=== PATIENT | female | born 1965 | race Caucasian/White ===

== ENCOUNTER → 2017-12-27 10:50 | Outpatient (CLI) | payer BC, SELFPAY | PROVIDERS: Family Provider Family Medicine; PCP Family Medicine; Visit Provider Family Medicine | DX: R19.7 Diarrhea, unspecified (principal) | CPT/HCPCS: 87493; 87506 ==

== ENCOUNTER 2020-05-10 08:13 | Observation (INO) | payer OTHER, SELFPAY ==
[2020-05-10 08:14] VITALS: BP 145/98; PULSE 111; RESP 28; TEMP 37; O2SAT 100; BMI 23.5
--- NOTE | 2020-05-10 08:23 | NURSING ---
NO OLD EKGS
--- NOTE | 2020-05-10 08:28 | EKG12_ITS ---
Test Reason : CP Blood Pressure : / mmHG Vent. Rate : 081 BPM Atrial Rate : 081 BPM P-R Int : 120 ms QRS Dur : 078 ms QT Int : 390 ms P-R-T Axes : 071 013 -27 degrees QTc Int : 453 ms Normal sinus rhythm with sinus arrhythmia Nonspecific ST and T wave abnormality Abnormal ECG Confirmed by IVANNA LORENZO ([id number]), editor dictionary YOON RODRIGUEZ ([id number]) on 05/13/2020 10:32:21 AM Referred By: SAMUEL Confirmed By:IVANNA LORENZO
--- NOTE | 2020-05-10 08:28 | RAD_ITS ---
STUDY: X-RAY CHEST REASON FOR EXAM: Female, 54 years old. Chest pain started this morning. TECHNIQUE: Single AP portable view of the chest. COMPARISON: None. FINDINGS: EKG electrodes are seen. The lungs are clear and expanded. There is no demonstrated pleural abnormality. Normal size heart. Normal mediastinum and mary. Normal visualized pulmonary arteries. Normal visualized aortic arch and descending thoracic aorta. Normal visualized thoracic spine. Normal visualized ribs, clavicles, and shoulders. There is no demonstrated abnormality of the visualized soft tissue structures of the upper abdomen. RAD/Chest 1 View (Portable) IMPRESSION: Normal x-ray examination of the chest. Electronically Signed: Bhupinder Oro, at 9:20 EDT , Service support ,
--- NOTE | 2020-05-10 08:29 | ED.VISSUMM ---
- ER Visit Summary Date of Service: 05/10/20 Chief Complaint: [Chest pain] History of Present Illness: The patient is a 54 F [presents to the emergency department with chest discomfort since approximately 1:30 AM. Patient states that it woke her up. Patient has been unable to sleep since that time. Patient states that around 3:30 AM she started having relief of her discomfort but still rates the discomfort about a 2 out of 10. She describes a pressure or tightness in her chest with radiation into the right side of her jaw and shoulder. Patient states she is been having headache for several days. She denies any fever or cough. She denies any exposures to COVID-19. Patient denies recent travel or surgery. No family history of heart disease. She herself is never had any cardiac issues. Patient states that when she was having severe discomfort she felt panicky and very tense.] Physical Examination: [HEENT-PERRLA, EOMI. Cranial nerves II through XII grossly intact. TMs clear. Mucous membranes moist. No adenopathy. Cardiovascular-regular rate and rhythm without murmur or ectopy Lungs-clear to auscultation, chest wall stable without crepitus or subcu emphysema Abdomen-normoactive bowel sounds, soft, nontender, no rebound or rigidity, no peritoneal signs. Extremities-intact ?4, normal range of motion, normal pulses, atraumatic] Test Results: [EKG obtained on arrival shows sinus rhythm with a ventricular rate of [address] changes noted with subtle ST depression noted inferiorly as well as anterior. No old EKGs available for comparison.] CBC with it was unremarkable. Chemistries unremarkable. Troponin less than 0.015. D-dimer normal. Chest x-ray unremarkable. Emergency Department Course and Treatment: [ Established. Patient was given sublingual nitro which seemed to help with her discomfort. Patient was given aspirin. She was placed on a night monitor. Patient was given Toradol 15 mg IV for headache.] Treatment Plan: [Admit. Patient has a heart score of 5.] Disposition: [Admit] Impression: [Chest pain-rule out acute coronary syndrome] This note was generated with [employer] software. It may contain incorrect words, spelling, and punctuation that were not noted in review of the chart prior to signing ED Disposition - Plan for ED Patient: Referrals: Eh Larose MD [Primary Care Provider] -
[2020-05-10 08:47] LABS: Absolute Lymphocyte Count 2.29 X10^3/uL (0.83-4.51); Absolute Neutrophil Count 6.6 X10^3/uL (2.0-7.7); Basophil# 0.04 X10^3/uL; Basophil% 0.4 % (0-1); Eosinophil# 0.13 X10^3/uL; Eosinophils% 1.3 % (0-5); Hemoglobin 15.6 g/dL (12.0-15.0); Lymphocyte # 2.29 X10^3/ul (4.0); Lymphocyte % 22.8 % (19-41); Mean Corp Hgb Conc 33.2 g/dL (32-36); Mean Corpuscular Hgb 30.1 pg (27.0-32.0); Mean Corpuscular Volume 90.6 fL (81-99); Mean Platelet Vol. 10.8 fl (6.2-12.0); Monocyte# 0.98 X10^3/uL; Monocyte% 9.7 % (0-10); NRBC Flagged by Analyzer 0 % (0-5); Neutrophil # 6.58 X10^3/uL (2.7-7.7); Neutrophil % 65.4 % (47-70); Platelet Count 258 K/mm3 (150-450); RBC Distribution Width CV 12.8 % (11.6-14.6); RBC Distribution Width SD 42.1 fl (35.1-43.9); Red Blood Count 5.19 M/mm3 (4.2-5.4); White Blood Count 10.1 K/mm3 (4.4-11.0)
[2020-05-10] MEDS: 0.9% Normal Saline 1,000 ML 150 ML IV ×2 (08:48→10:23)
[2020-05-10] MEDS: Aspirin 81 MG TAB.CHEW 324 MG PO (08:48)
[2020-05-10 08:49] VITALS: BP 101/79; PULSE 58
[2020-05-10] MEDS: Nitroglycerin SL (ED/IMG/CATH) 0.4 MG TABLET SUBLINGUAL (08:49)
[2020-05-10 09:00] LABS: Anion Gap 13 (5-15); BUN 13 mg/dL (7-18); BUN/Creat Ratio 13.6 RATIO (10-20); Calcium,Total 9.5 mg/dL (8.5-10.1); Chloride 104 mmol/L (98-107); Creatinine, Serum 0.95 mg/dL (0.55-1.02); EST Glomerular Filtration Rate 64 mL/min (>60); Est Glom Filt Rate - Afr Amer 78 mL/min (>60); Glucose 101 mg/dL (74-106); Potassium 3.6 mmol/L (3.5-5.1); Sodium Level 140 mmol/L (136-145)
[2020-05-10 09:01] LABS: D-Dimer Quantitative (DVT/PE) 0.28 FEU/ug/m (0.27-0.49)
[2020-05-10] MEDS: Ondansetron 4 MG/2 ML Vial IV (09:04)
--- NOTE | 2020-05-10 09:10 | NURSING ---
DR GILBERT PERDUE
--- NOTE | 2020-05-10 09:13 | NURSING ---
PCU OBS GILBERT SOLIS
[2020-05-10] MEDS: Ketorolac 15 MG/ML Vial IV (09:31)
[2020-05-10 09:35] VITALS: BP 95/83; PULSE 61; RESP 18; TEMP 36.6; O2SAT 99
[2020-05-10 10:02] VITALS: BP 94/44; PULSE 56; RESP 14; TEMP 36.4; O2SAT 99
[2020-05-10 10:03] VITALS: BMI 24.2
--- NOTE | 2020-05-10 10:15 | EKG12_ITS ---
Test Reason : CP Blood Pressure : / mmHG Vent. Rate : 058 BPM Atrial Rate : 058 BPM P-R Int : 124 ms QRS Dur : 084 ms QT Int : 470 ms P-R-T Axes : 056 011 035 degrees QTc Int : 461 ms Sinus bradycardia Nonspecific ST and T wave abnormality Prolonged QT Abnormal ECG When compared with ECG of 10-MAY-2020 08:16, MANUAL COMPARISON REQUIRED, DATA IS UNCONFIRMED Confirmed by IVANNA LORENZO ([id number]), movie editor YOON RODRIGUEZ ([id number]) on 05/13/2020 10:35:31 AM Referred By: HAILEE Confirmed By:IVANNA LORENZO
[2020-05-10 10:20] VITALS: BMI 24.2
[2020-05-10 10:33] VITALS: PULSE 69
--- NOTE | 2020-05-10 11:10 | HP.PCM_ITS ---
Problem List (1) Chest pain Status: Acute (2) Anxiety Status: Chronic History of Present Illness Date of Admission: 05/10/20 Chief Complaint: chest pressure The patient is a 54 year old F with pmhx of anx/depression who presented to the ER with c/o chest pain. This began last night just before going to bed. She describes it as a midsternal chest pressure that radiates into the right jaw. It is worse laying flat and better sitting up. She took OTC nsaids with no relief. She woke up at about 0130 and the pain was worse. She went to the cough and slept propped upright with pillows and the pain was mildly improved. She has no exertional chest pain. She has no SOB at rest or with exertion. No cough, fevers, chills, recent illness, or sick contacts. She denies any family hx of cardiac disease. She has no HTN or HLD. She smokes marijuana daily. She denies ever using tobacco. Currently she has no chest pain. [] Past Medical History Past Medical History (Chronic Problems): Chronic Problems Anxiety (Chronic) Allergies erythromycin base Allergy (Verified 05/10/20 09:09) Nausea Home Medications: Ambulatory Orders Medication Instructions Recorded Bupropion HCl [Wellbutrin Xl] 150 mg PO DAILY 05/10/20 Citalopram [Celexa] 20 mg PO DAILY 05/10/20 Trazodone HCl 50 mg PO QHS PRN 05/10/20 Surgical History: - - C section Psychiatric History: Anxiety, Depression Lives: Spouse/ Significant Other Smoking Status: Never smoker Tobacco Use: Non-smoker Alcohol: None Drugs: Marijuana - *Family History Maternal History Items: Renal Disease Paternal History Items: Cancer - colon Review of Systems Constitutional: Denies: Chills, Fever, Weight Change HEENT: Denies: Head Aches, Sinus Congestion, Sinus Drainage Cardiovascular: Reports: Chest Pain, Chest Pressure. Denies: Edema, Heaviness, Light Headedness, Orthopnea, Palpitations, Syncope Respiratory: Denies: Cough, Shortness of Breath, Shortness of breath at rest, Sputum production Gastrointestinal: Denies: Abdominal Pain, Diarrhea, Nausea, Vomiting Genitourinary: Denies: Dysuria, Frequency, Urgency Musculoskeletal: Denies: Joint Pain, Joint Tenderness Skin: Denies: Rash, Wounds Neurological: Denies: Numbness, Tingling, Focal weakness Psychiatric: Denies: Anxiety, Depression, Homicidal Ideations, Suicidal Ideations Hematologic/ Lymphatic: Denies: Easy Bruising, Easy Bleeding VTE Information - Inpt Only VTE Present on Admission: No VTE Mechan Device Prophylaxis: None VTE Pharm Prophylaxis ordered?: Yes Patient Problems: Active and Suspected Problems Chest pain (Acute) - Physical Exam Vitals/I&O's: Vital Signs Temp Pulse Resp BP Pulse Ox 97.6 F L 69 14 94/44 L 99 05/10/20 10:02 05/10/20 10:33 05/10/20 10:02 05/10/20 10:02 05/10/20 10:02 Oxygen Delivery Method Room Air Weight: 150 lb 2.157 oz Body Mass Index (BMI) 24.2 Intake and Output for Last 24 Hours 05/08/20 05/09/20 05/10/20 23:59 23:59 23:59 Intake Total 237.5 / 237.5 Balance 237.5 / 237.5 General: Alert, Oriented x3, Cooperative HEENT: Atraumatic, PERRLA, EOMI, Normocephalic Neck: Supple, No JVD, Negative Carotid Bruits Lungs: Clear to auscultation, Normal air movement Cardiovascular: Regular rate, No murmurs Abdomen: Bowel Sounds Present, Soft, Non Tender Extremities: No edema, Capillary Refill Less than 3 Seconds Skin: No rashes, No breakdown Musculoskeletal: No Tenderness to Palpation of Joints or Extremities Neurological: Cranial nerves II-XII grossly intact Psych/Mental Status: Normal Affect, Appropriate, Alert and oriented to time, rick ce, person, mood and affect Laboratory Results 05/10/20 08:: WBC 10.1, RBC 5.19, Hgb 15.6 H, Hct 47.0, MCV 90.6, MCH 30.1, MCHC 33.2, RDW Std Deviation 42.1, RDW Coeff of Skye 12.8, Plt Count 258, MPV 10.8, Immature Gran % (Auto) 0.400, Neut % (Auto) 65.4, Lymph % (Auto) 22.8, [place] % (Auto) 9.7, Eos % (Auto) 1.3, Baso % (Auto) 0.4, Absolute Neuts (auto) 6.6, Absolute Lymphs (auto) 2.29, Nucleated RBC % 0 05/10/20 08:20: D-Dimer Quant (PE/DVT) 0.28 05/10/20 08:20: Sodium 140, Potassium 3.6, Chloride 104, Carbon Dioxide 23.0, Anion Gap 13, BUN 13, Creatinine 0.95, Estim Creat Clear Calc 61.90, Est GFR (MDRD) Af Amer 78, Est GFR (MDRD) Non-Af 64, BUN/Creatinine Ratio 13.6, Glucose 101, Calcium 9.5, Troponin I < 0.015 05/10/20 10:40: Troponin I < 0.015 Current Medications Sodium Chloride () 1,000 mls @ 150 mls/hr IV .[id number] CIERRA Last Admin: 05/10/20 10:23 Dose: 150 mls/hr Documented by: Sodium Chloride () 250 mls @ 15 mls/hr IV .[id number] PRN PRN Reason: Saline Flush Sodium Chloride () 250 mls @ 15 mls/hr IV .[id number] PRN PRN Reason: Additional IVPB Infusion Morphine Sulfate () 4 mg IV Q3H PRN PRN PRN Reason: Pain Score 6-10/10 Nitroglycerin (Nitrostat) 0.4 mg SUBLINGUAL Q5M PRN PRN Reason: Chest pain Last Admin: 05/10/20 08:49 Dose: 0.4 mg Documented by: Ondansetron HCl (Zofran) 4 mg IV Q8H PRN PRN PRN Reason: NAUSEA/VOMITING Sodium Chloride () 10 - 40 ml IV UD PRN PRN Reason: SALINE FLUSH Assessment/Plan All Active Problems Chest pain (Acute) 1. Chest pain - nonspecific ST changes on EKG. Trop neg x 2. No heart hx. No family hx heart dz. No nicotine use. Does smoke marijuana daily. CXR neg. D dimer neg. Never had stress test. Treadmill stress today. 2. Anx/Depression - continue home meds. DVT ppx: lovenox This patient was seen by Kevin Schneider PA-C under the supervision of Dr. Berrios.
--- NOTE | 2020-05-10 12:53 | STRESSREP ---
Stress Test Report Date: 05-10-2020 Procedure: Exercise tolerance test/imaging study Indications: Chest pain Consent: Per the patient Procedure: The patient exercised on a Shahriar protocol for 7 minutes completing Stage II and 1 minute of Stage I achieving a peak heart rate of 139 bpm (84 % predicted maximal heart rate) with a peak blood pressure 134/62 mmHg and a peak MET capacity of 8 METs. The baseline ECG demonstrated sinus rhythm; nonspecific ST/T wave abnormality. The peak exercise ECG demonstrated somatic/motion artifact with [id number] nonspecific ST segment variability. There were no cardiac dysrhythmias pretest, during exercise, or recovery. The functional capacity was considered average. There was chest tightness during exercise as well as shortness of breath/dyspnea. The examination was discontinued secondary to dyspnea. Impression: 1. Technically adequate (percent predicted maximal heart rate greater than 85%) exercise tolerance test 2. Peak exercise ECG with somatic/motion artifact with [id number] nonspecific ST segment variability 3. There were no cardiac dysrhythmias pretest, during exercise, or recovery 4. Nuclear images pending Myocardial perfusion imaging study: Technique: The patient was injected with 11.0 mCi of technetium 99m Cardiolite and subsequently rest SPECT Cardiolite nuclear imaging was obtained in the horizontal long, vertical long, and short axis views. The patient exercised on a Shahriar protocol for 7 minutes completing Stage II and 1 minute of Stage I achieving a peak heart rate of 139 bpm (84 % predicted maximal heart rate) with a peak blood pressure 134/62 mmHg and a peak MET capacity of 8 METs. The patient was injected with 32.8 mCi of technetium 99m Cardiolite and subsequently stress SPECT Cardiolite nuclear imaging was obtained in the horizontal long, vertical long, and short axis views. A gated Cardiolite study at peak stress was obtained. Interpretation: Rest and stress SPECT Cardiolite nuclear imaging status post realignment, normalization, and attenuation correction, demonstrates the appearance of relative uniform tracer uptake and myocardial perfusion appearing within normal limits. There is end systolic thickening and brightening. The gated Cardiolite study demonstrates myocardial thickening and inward wall motion. The reported LVEF is 88 %. Impression: 1. Rest and stress SPECT Cardiolite nuclear imaging demonstrate relative uniform tracer uptake and myocardial perfusion appearing within normal limits. 2. The gated Cardiolite study reports an LVEF of 88 %. This note was generated with [employer] software. It may contain incorrect words, spelling, and punctuation that were not noted in checking the note before signing.
--- NOTE | 2020-05-10 13:31 | DCINST_ITS ---
- Discharge Diagnoses Current Active Problems: Current Active and Chronic Problems Chest pain (Acute) Anxiety (Chronic) You will use the following diet at home:: No restrictions Your liquids should be the consistency of: Regular/Thin Discharge Activity: Return to Normal Activity Call your doctor if you observe: Chest pain Allergies/Adverse Reactions: Allergies erythromycin base Allergy (Verified 05/10/20 09:09) Nausea Medications to take at Discharge Bupropion HCl [Wellbutrin Xl] 150 mg PO DAILY 05/10/20 Citalopram [Celexa] 20 mg PO DAILY 05/10/20 Trazodone HCl 50 mg PO QHS PRN 05/10/20 Primary Care Physician: Eh Larose MD [STAFF PHYSICIAN] - Please follow up with your Primary Care Physician in: 1-2 weeks Test Results: Test results from this visit will be discussed in further detail at your follow- up appointment, if applicable. Proposed Discharge Date: 05/10/20
--- NOTE | 2020-05-10 13:32 | DS.PCM_ITS ---
Discharge Date and Diagnosis - Problem List Patient Problems: Active and Suspected Problems Chest pain (Acute) Date of Admission: 05/10/20 Date of Discharge: 05/10/20 - Primary Discharge Diagnosis Acute Problems: Active Problems Chest pain - musculoskeletal Anxiety/Depression - Secondary Discharge Diagnosis Chronic Problems: Chronic Problems Anxiety (Chronic) Hospital Course and Treatment Imaging Results: DIAGNOSTICS: 05/10/20 08:28 Chest 1 View (Portable) [RAD] Stat RAD/Chest 1 View (Portable) IMPRESSION: Normal x-ray examination of the chest. 05/10/20 09:56 Nuclear Stress Test - Treadmil [NM] Routine Interpretation: Rest and stress SPECT Cardiolite nuclear imaging status post realignment, normalization, and attenuation correction, demonstrates the appearance of relative uniform tracer uptake and myocardial perfusion appearing within normal limits. There is end systolic thickening and brightening. The gated Cardiolite study demonstrates myocardial thickening and inward wall motion. The reported LVEF is 88 %. Impression: 1. Rest and stress SPECT Cardiolite nuclear imaging demonstrate relative uniform tracer uptake and myocardial perfusion appearing within normal limits. 2. The gated Cardiolite study reports an LVEF of 88 %. This note was Operations: None Procedures: Stress test Summary of Care Provided: Hospital course: The patient is a 54 year old F with past medical history of anxiety/depression who presented to the emergency room with chest pain. This started last night just before going to bed. She described it as a midsternal pressure with radiation into the right jaw. She went to bed and woke up at about 1:30 in the morning with increased pain. She went to the couch and lay down with her head elevated and this helped with the pain somewhat. It was still present today so she came to the emergency room. She did note however that when she presses in the midsternal region with her hand it reproduces the pain. EKG demonstrated nonspecific ST changes. Troponin was negative, chest x-ray is negative. She had no family history of coronary disease. She does smoke marijuana daily, however she does not use any nicotine products. She does not have hypertension or hyperlipidemia. The patient underwent a stress test which was negative. The pain was felt to be musculoskeletal. She was discharged home in stable condition and will need follow-up with her PCP in 1 to 2 weeks. This patient was seen by Kevin Schneider PA-C under the supervision of Doctor Agustina. [] Patient Problems: Active and Suspected Problems Chest pain (Acute) - Physical Exam Vitals/I&O's: Vital Signs Temp Pulse Resp BP Pulse Ox 97.6 F L 69 14 94/44 L 99 05/10/20 10:02 05/10/20 10:33 05/10/20 10:02 05/10/20 10:02 05/10/20 10:02 Oxygen Delivery Method Room Air Weight: 150 lb 2.157 oz Body Mass Index (BMI) 24.2 Intake and Output for Last 24 Hours 05/08/20 05/09/20 05/10/20 23:59 23:59 23:59 Intake Total 380.0 / 380.0 Balance 380.0 / 380.0 General: Alert, Oriented x3, Cooperative HEENT: Atraumatic, PERRLA, EOMI, Normocephalic Neck: Supple, No JVD, Negative Carotid Bruits Lungs: Clear to auscultation, Normal air movement Cardiovascular: Regular rate, No murmurs Abdomen: Bowel Sounds Present, Soft, Non Tender Extremities: No edema, Capillary Refill Less than 3 Seconds Skin: No rashes, No breakdown Musculoskeletal: No Tenderness to Palpation of Joints or Extremities Neurological: Cranial nerves II-XII grossly intact Psych/Mental Status: Normal Affect, Appropriate, Alert and oriented to time, place, person, mood and affect Laboratory Results 05/10/20 08:20: WBC 10.1, RBC 5.19, Hgb 15.6 H, Hct 47.0, MCV 90.6, MCH 30.1, MCHC 33.2, RDW Std Deviation 42.1, RDW Coeff of Skye 12.8, Plt Count 258, MPV 10.8, Immature Gran % (Auto) 0.400, Neut % (Auto) 65.4, Lymph % (Auto) 22.8, [place] % (Auto) 9.7, Eos % (Auto) 1.3, Baso % (Auto) 0.4, Absolute Neuts (auto) 6.6, Absolute Lymphs (auto) 2.29, Nucleated RBC % 0 05/10/20 08:20: D-Dimer Quant (PE/DVT) 0.28 05/10/20 08:20: Sodium 140, Potassium 3.6, Chloride 104, Carbon Dioxide 23.0, Anion Gap 13, BUN 13, Creatinine 0.95, Estim Creat Clear Calc 61.90, Est GFR (MDRD) Af Amer 78, Est GFR (MDRD) Non-Af 64, BUN/Creatinine Ratio 13.6, Glucose 101, Calcium 9.5, Troponin I < 0.015 05/10/20 10:40: Troponin I < 0.015 Current Medications Sodium Chloride () 1,000 mls @ 150 mls/hr IV .[id number] CIERRA Last Infusion: 05/10/20 11:20 Dose: 0 mls/hr Documented by: Sodium Chloride () 250 mls @ 15 mls/hr IV .[id number] PRN PRN Reason: Saline Flush Sodium Chloride () 250 mls @ 15 mls/hr IV .[id number] PRN PRN Reason: Additional IVPB Infusion Morphine Sulfate () 4 mg IV Q3H PRN PRN PRN Reason: Pain Score 6-10/10 Nitroglycerin (Nitrostat) 0.4 mg SUBLINGUAL Q5M PRN PRN Reason: Chest pain Last Admin: 05/10/20 08:49 Dose: 0.4 mg Documented by: Ondansetron HCl (Zofran) 4 mg IV Q8H PRN PRN PRN Reason: NAUSEA/VOMITING Sodium Chloride () 10 - 40 ml IV UD PRN PRN Reason: SALINE FLUSH Discharge Diet: No Restrictions Discharge Activity: Return to Normal Activity Call your doctor if you observe: Chest pain Home Medications: Medications to take at Discharge Bupropion HCl [Wellbutrin Xl] 150 mg PO DAILY 05/10/20 Citalopram [Celexa] 20 mg PO DAILY 05/10/20 Trazodone HCl 50 mg PO QHS PRN 05/10/20 Primary Care Physician: Eh Larose MD [STAFF PHYSICIAN] - Please follow up with your Primary Care Physician in: 1-2 weeks Disposition: Home Minutes spent on discharge:: 35 Patient Condition:: Stable Medical Necessity - Tobacco Use Smoking Status: Never smoker Tobacco Use: Non-smoker Meaningful Use Info Meaningful Use Diagnoses (Choose all that apply): None applicable
[2020-05-10 13:44] VITALS: BP 93/67; PULSE 68; RESP 14; TEMP 36.6; O2SAT 94
== END 2020-05-10 13:32 | disposition home or self-care (01) ==
LOC: ED 09:14 → PCU 09:56
PROVIDERS: Admitting Provider Internal Medicine; Emergency Provider Emergency Medicine; PCP Family Medicine; Visit Provider Internal Medicine
DX: R07.89 Other chest pain (principal); R51 Headache; F41.9 Anxiety disorder, unspecified; F12.90 Cannabis use, unspecified, uncomplicated; F32.9 Major depressive disorder, single episode, unspecified; Z79.899 Other long term (current) drug therapy
CPT/HCPCS: 36415; 71045; 78452; 80048; 84484; 85025; 85379; 93005; 93017; 96361; 96374; 96375; 99285; A9500; J7030; A4216; J2405

== ENCOUNTER → 2020-07-28 15:54 | Outpatient (CLI) | payer OTHER, SELFPAY ==
[2020-07-28 17:04] LABS: Cholesterol 203 mg/dL (200); High Density Lipoprotein 50 mg/dL; Triglycerides 239 mg/dL; Very Low Density Lipoprotein 48 mg/dL (5-40)
== END ==
PROVIDERS: PCP Internal Medicine; Referring Provider Internal Medicine; Visit Provider Internal Medicine
DX: Z00.00 Encounter for general adult medical examination without abnormal findings (principal)
CPT/HCPCS: 36415; 80061

== ENCOUNTER → 2021-01-16 15:27 | Outpatient (CLI) | payer OTHER, SELFPAY ==
[2020-12-14 14:57] VITALS: BMI 23.6
--- NOTE | 2021-01-16 15:32 | CT_ITS ---
STUDY: CT ABDOMEN AND PELVIS WITH AND WITHOUT CONTRAST REASON FOR EXAM: Female, 55 years old. HEMATURIA/LOW ABD PAIN RADIATION DOSAGE (If Supplied By Facility): CTDIvol = ( 7.71 ) mGy, DLP = ( 799.01 ) mGycm TECHNIQUE: Transaxial images were obtained from the dome of the diaphragm to the symphysis pubis without oral contrast. IV 75ML ISOVUE 300 was administered. Sagittal and coronal images were reconstructed. Individualized dose optimization techniques were used for this CT. COMPARISON: None. FINDINGS: The visualized lung bases are unremarkable. The visualized portions of the heart are within normal limits. Normal liver. Likely mild sludge layering within the bladder is present. Normal spleen. Normal pancreas. Normal bilateral adrenal glands. There is severe cortical atrophy of the right kidney, consistent with chronic medical renal disease. Normal left kidney. Normal visualized stomach. Normal small intestine. Normal colon. The appendix is visualized and appears normal. Normal abdominal aorta. Normal inferior vena cava. Normal retroperitoneum. Normal urinary bladder. There is atrophy of the uterus. Normal abdominal wall. There are diffuse degenerative changes of the visualized lumbar spine. CT/CT Abd/Pelvis W/WO Contrast IMPRESSION: 1. Severe atrophic changes of the right kidney with otherwise normal appearance of the left kidney. Otherwise no evidence of acute abdominal process. Electronically Signed: Navneet Villarreal DO at 8:40 EDT , Service support ,
== END ==
PROVIDERS: PCP Internal Medicine; Referring Provider Urology; Visit Provider Urology
DX: R31.9 Hematuria, unspecified (principal); R10.30 Lower abdominal pain, unspecified
CPT/HCPCS: 74178; Q9967

== ENCOUNTER → 2021-07-31 15:42 | Outpatient (CLI) | payer OTHER, SELFPAY ==
[2021-07-31 15:44] LABS: Bacteria 0 SEEN /hpf (None Seen); Mucous, Urine 0 SEEN /hpf (<or=2+); Red Blood Cells-Urine 0 SEEN /hpf (0-5)
[2021-07-31 16:43] LABS: Absolute Lymphocyte Count 2.24 X10^3/uL (0.83-4.51); Absolute Neutrophil Count 5.4 X10^3/uL (2.0-7.7); Basophil# 0.04 X10^3/uL; Basophil% 0.5 % (0-1); Eosinophil# 0.14 X10^3/uL; Eosinophils% 1.6 % (0-5); Hematocrit 41.1 % (37-47); Hemoglobin 13.4 g/dL (12.0-15.0); Lymphocyte # 2.24 X10^3/ul (0.83-4.51); Lymphocyte % 26.4 % (19-41); Mean Corp Hgb Conc 32.6 g/dL (32-36); Mean Corpuscular Volume 92.2 fL (81-99); Mean Platelet Vol. 10.6 fl (6.2-12.0); Monocyte# 0.67 X10^3/uL; Monocyte% 7.9 % (0-10); NRBC Flagged by Analyzer 0 % (0-5); Neutrophil # 5.38 X10^3/uL (2.7-7.7); Neutrophil % 63.4 % (47-70); Platelet Count 237 K/mm3 (150-450); RBC Distribution Width SD 43.9 fl (35.1-43.9); Red Blood Count 4.46 M/mm3 (4.2-5.4); White Blood Count 8.5 K/mm3 (4.4-11.0)
[2021-07-31 16:45] LABS: Color, Urine Yellow (Yellow); Glucose, Dipstick Normal (Normal); Ketone-Dipstick Negative (Negative); Leukocyte Esterase-Dipstick Negative /ul (Negative); Nitrite-Dipstick Negative (Negative); Occult Blood-Urine 25 /ul (Negative); Protein-Dipstick Negative (Negative); Urine Bilirubin Dipstick Negative (Negative); Urine Clarity Clear (Clear); Urine Urobilinogen Normal (Normal)
[2021-07-31 16:51] LABS: Squamous Epithelial Cells - UA 0-5 SEEN /hpf (5-10); White Blood Cells 0-5 SEEN /hpf (0-5)
[2021-07-31 17:20] LABS: AST(SGOT) 15 U/L (15-37); Alanine Aminotransfer ALT/SGPT 20 U/L (13-56); Alkaline Phosphatase 77 U/L (45-117); Anion Gap 8 (5-15); BUN 20 mg/dL (7-18); BUN/Creat Ratio 24.4 RATIO (10-20); Calcium,Total 9.1 mg/dL (8.5-10.1); Chloride 104 mmol/L (98-107); Cholesterol 237 mg/dL (200); Creatinine, Serum 0.82 mg/dL (0.55-1.02); EST Glomerular Filtration Rate 76 mL/min (>60); Est Glom Filt Rate - Afr Amer 92 mL/min (>60); Glucose 89 mg/dL (74-106); High Density Lipoprotein 52 mg/dL; Potassium 3.4 mmol/L (3.5-5.1); Sodium Level 138 mmol/L (136-145); Triglycerides 184 mg/dL; Very Low Density Lipoprotein 37 mg/dL (5-40)
== END ==
PROVIDERS: PCP Internal Medicine; Referring Provider Internal Medicine; Visit Provider Internal Medicine
DX: Z00.00 Encounter for general adult medical examination without abnormal findings (principal)
CPT/HCPCS: 36415; 80053; 80061; 81001; 85025

== ENCOUNTER 2021-10-03 15:35 | Outpatient (CLI) | payer OTHER, SELFPAY ==
--- NOTE | 2021-10-03 15:38 | BI_ITS ---
MAMMOGRAPHY - BILATERAL SCREENING REASON FOR EXAM: Female, 56 years old. Routine annual screening examination. PERTINENT HISTORY: Non-contributory. TECHNIQUE: Digital bilateral breast arash (3D mammographic acquisition) in the CC and MLO projections. 2-D mediolateral oblique (MLO) and craniocaudad (CC) views of both breasts were obtained. CAD: Full Field Digital Mammography with Computer Added Detection was performed. COMPARISON: Comparison is made with prior outside examination dated 06/18/2012. FINDINGS: Breast Composition: The breasts are heterogeneously dense, which may obscure small masses. There are no dominant masses or suspicious calcifications. No other significant abnormalities are identified. There has been no significant change since the prior study. BI/SCRN MAMM (CAD)W/ARASH BILAT IMPRESSION: Stable bilateral screening mammogram. Yearly follow-up mammogram recommended. (A) ASSESSMENT CATEGORY: BIRADS Category 1: Negative. A letter regarding these results will be sent to the patient by the facility within 30 days. Approximately 10% of breast cancers are not detected by mammography. A normal mammogram should not delay biopsy of a clinically suspicious abnormality. [id number] Electronically Signed: Bhupinder Oro MD at 8:35 EST , Service support ,
--- NOTE | 2021-10-03 15:45 | BD_ITS ---
STUDY: DUAL ENERGY X-RAY ABSORPTIOMETRY / DXA REASON FOR EXAM: Female, 56 years old. Post Menopausal TECHNIQUE: Bone Mineral Density (BMD) measurements of lumbar spine and bilateral hips were obtained. COMPARISON: None. FINDINGS: Lumbar Spine (L1-L4): g/cm2 (0.939) / T-score (-0.9) / Z-score (0.4) Findings are suggestive of normal bone density with a low fracture risk. Left Femur Total: g/cm2 (0.732) / T-score (-1.7) / Z-score (-0.9) Left Femoral Neck: g/cm2 (0.609) / T-score (-2.2) / Z-score (-1.0) Right Femur Total: g/cm2 (0.718) / T-score (-1.8) / Z-score (-1.0) Right Femoral Neck: g/cm2 (0.601) / T-score (-2.2) / Z-score (-1.0) BD/Dexa Bone Density Study IMPRESSION: The patient is considered osteopenic as outlined below according to World Crispin Organization (WHO) criteria with a high fracture risk. Reference Information: The T-score is the number of standard deviations above or below the standard which is normal for young adults at their peak bone mineral density. The World Health Organization (WHO) interprets the T-scores as follows: Above -1 Normal bone density Between -1 and -2.5 Osteopenia Equal to / or below -2.5 Osteoporosis As a practical clinical guideline, osteopenia may be graded as follows: Mild -1 through -1.5 Moderate -1.6 through -2.0 Severe -2.1 through -2.4 The Z-score is the number of standard deviations above or below age-matched controls. A Z-score of less than -1.5 would be considered abnormal. References: 1. NIH Osteoporosis and Related Bone Diseases www osteo.org 2. International Society for Clinical Densitometry www iscd.org 3. National Osteoporosis Foundation www nof.org Electronically Signed: Bhupinder Oro MD at 15:25 EST , Service support ,
== END 2021-10-03 23:59 | disposition short-term general hospital (02) ==
PROVIDERS: PCP Internal Medicine; Visit Provider Internal Medicine
DX: Z12.31 Encounter for screening mammogram for malignant neoplasm of breast (principal); Z78.0 Asymptomatic menopausal state
CPT/HCPCS: 77063; 77067; 77080

== ENCOUNTER 2021-10-11 15:37 | Outpatient (CLI) | payer OTHER, SELFPAY ==
[2021-10-11 16:46] LABS: Vitamin D,25 Hydroxy 30.3 ng/mL
[2021-10-11 16:48] LABS: Anion Gap 10 (5-15); BUN 17 mg/dL (7-18); BUN/Creat Ratio 20.5 RATIO (10-20); Calcium,Total 9.4 mg/dL (8.5-10.1); Chloride 104 mmol/L (98-107); Creatinine, Serum 0.83 mg/dL (0.55-1.02); EST Glomerular Filtration Rate 75 mL/min (>60); Est Glom Filt Rate - Afr Amer 91 mL/min (>60); Glucose 87 mg/dL (74-106); Potassium 3.7 mmol/L (3.5-5.1); Sodium Level 139 mmol/L (136-145)
== END 2021-10-11 23:59 | disposition short-term general hospital (02) ==
LOC: BIMLAB 15:37
PROVIDERS: PCP Internal Medicine; Referring Provider Internal Medicine; Visit Provider Internal Medicine
DX: M85.80 Other specified disorders of bone density and structure, unspecified site (principal)
CPT/HCPCS: 36415; 80048; 82306

== ENCOUNTER → 2023-08-28 | Outpatient (CLI) | payer OTHER, SELFPAY ==
[2023-08-28 16:41] LABS: Absolute Lymphocyte Count 2.32 X10^3/uL (0.83-4.51); Absolute Neutrophil Count 4.5 X10^3/uL (2.0-7.7); Basophil# 0.05 X10^3/uL; Basophil% 0.6 % (0-1); Eosinophil# 0.27 X10^3/uL; Eosinophils% 3.5 % (0-5); Hematocrit 44.7 % (37-47); Hemoglobin 14.2 g/dL (12.0-15.0); Lymphocyte # 2.32 X10^3/ul (0.83-4.51); Lymphocyte % 29.7 % (19-41); Mean Corp Hgb Conc 31.8 g/dL (32-36); Mean Corpuscular Hgb 29.2 pg (27.0-32.0); Mean Platelet Vol. 10.4 fl (6.2-12.0); Monocyte# 0.67 X10^3/uL; Monocyte% 8.6 % (0-10); NRBC Flagged by Analyzer 0 % (0-5); Neutrophil # 4.46 X10^3/uL (2.7-7.7); Neutrophil % 57.2 % (47-70); Platelet Count 259 K/mm3 (150-450); RBC Distribution Width CV 13.2 % (11.6-14.6); RBC Distribution Width SD 44.7 fl (35.1-43.9); Red Blood Count 4.86 M/mm3 (4.2-5.4); White Blood Count 7.8 K/mm3 (4.4-11.0)
[2023-08-28 16:52] LABS: ALB/GLOB Ratio 1.1 RATIO (0.9-2.4); AST(SGOT) 17 U/L (15-37); Alanine Aminotransfer ALT/SGPT 31 U/L (13-56); Albumin, Serum 3.9 g/dL (3.2-5.0); Alkaline Phosphatase 74 U/L (45-117); Anion Gap 6 (5-15); BUN 17 mg/dL (7-18); BUN/Creat Ratio 17.5 RATIO (10-20); Chloride 104 mmol/L (98-107); Cholesterol 243 mg/dL (200); Creatinine, Serum 0.97 mg/dL (0.55-1.02); EST Glomerular Filtration Rate 62 mL/min (>60); Est Glom Filt Rate - Afr Amer 75 mL/min (>60); Globulin 3.5 g/dL (2.2-4.2); Glucose 92 mg/dL (74-106); High Density Lipoprotein 51 mg/dL; Potassium 3.9 mmol/L (3.5-5.1); Protein, Total 7.4 g/dL (6.4-8.2); Sodium Level 138 mmol/L (136-145); T4 Free Direct 0.99 ng/dL (0.76-1.46); Triglycerides 175 mg/dL; Very Low Density Lipoprotein 35 mg/dL (5-40)
[2023-08-28 19:01] LABS: Vitamin D,25 Hydroxy 57.2 ng/mL
== END | disposition home or self-care (01) ==
LOC: BIMLAB 15:55
PROVIDERS: PCP Internal Medicine; Referring Provider Internal Medicine; Visit Provider Internal Medicine
DX: F41.9 Anxiety disorder, unspecified (principal); F32.9 Major depressive disorder, single episode, unspecified; M85.80 Other specified disorders of bone density and structure, unspecified site; E78.5 Hyperlipidemia, unspecified
CPT/HCPCS: 36415; 80053; 80061; 82306; 84439; 85025

== ENCOUNTER → 2024-04-16 | Outpatient (CLI) | payer OTHER, SELFPAY ==
--- NOTE | 2024-04-16 08:11 | BI_ITS ---
MAMMOGRAPHY - BILATERAL SCREENING REASON FOR EXAM: Female, 58 years old. Routine annual screening examination. PERTINENT HISTORY: Non-contributory. TECHNIQUE: Digital bilateral breast arash (3D mammographic acquisition) in the CC and MLO projections. 2-D mediolateral oblique (MLO) and craniocaudad (CC) views of both breasts were obtained. CAD: Full Field Digital Mammography with Computer Added Detection was performed. COMPARISON: Comparison is made with prior study dated October 03, 2021. FINDINGS: Breast Composition: The breasts are heterogeneously dense, which may obscure small masses. There are no dominant masses or suspicious calcifications. No other significant abnormalities are identified. There has been no significant change since the prior study. BI/SCRN MAMM (CAD)W/ARASH BILAT IMPRESSION: Stable bilateral screening mammogram. Yearly follow-up mammogram recommended. (A) ASSESSMENT CATEGORY: BIRADS Category 1: Negative. A letter regarding these results will be sent to the patient by the facility within 30 days. Approximately 10% of breast cancers are not detected by mammography. A normal mammogram should not delay biopsy of a clinically suspicious abnormality. [id number] Electronically Signed: Bhupinder Oro MD at 9:53 EDT ,
--- NOTE | 2024-04-16 08:24 | BD_ITS ---
STUDY: DUAL ENERGY X-RAY ABSORPTIOMETRY / DXA REASON FOR EXAM: Female, 58 years old. Post menopausal TECHNIQUE: Bone Mineral Density (BMD) measurements of lumbar spine and bilateral hips were obtained. COMPARISON: Comparison is made with prior study dated October 03, 2021. FINDINGS: Lumbar Spine (L1-L4): g/cm2 (0.939) / T-score (-1.0) / Z-score (0.5) Findings are suggestive of osteopenia with a low fracture risk. Left Femur Total: g/cm2 (0.763) / T-score (-1.5) / Z-score (-0.5) Left Femoral Neck: g/cm2 (0.60) / T-score (-1.7) / Z-score (-0.4) Right Femur Total: g/cm2 (0.735) / T-score (-1.7) / Z-score (-0.7) Right Femoral Neck: g/cm2 (0.620) / T-score (-2.1) / Z-score (-0.7) The T-Scores on the most recent prior examination were: Lumbar Spine (L1-L4): There has been no change of bone density since the previous examination. Left Femur Total: which represents an improvement of 4.2%. Right Femur Total: which represents an improvement of 2.5%. BD/Dexa Bone Density Study IMPRESSION: The patient is considered osteopenic as outlined below according to World Crispin Organization (WHO) criteria with a moderate fracture risk. There has been improvement of bone density since the previous examination. Reference Information: The T-score is the number of standard deviations above or below the standard which is normal for young adults at their peak bone mineral density. The World Health Organization (WHO) interprets the T-scores as follows: Above -1 Normal bone density Between -1 and -2.5 Osteopenia Equal to / or below -2.5 Osteoporosis As a practical clinical guideline, osteopenia may be graded as follows: Mild -1 through -1.5 Moderate -1.6 through -2.0 Severe -2.1 through -2.4 The Z-score is the number of standard deviations above or below age-matched controls. A Z-score of less than -1.5 would be considered abnormal. References: 1. NIH Osteoporosis and Related Bone Diseases www osteo.org 2. International Society for Clinical Densitometry www iscd.org 3. National Osteoporosis Foundation www nof.org Electronically Signed: Bhupinder Oro MD at 7:54 EDT ,
== END | disposition home or self-care (01) ==
LOC: OPBD 08:11
PROVIDERS: PCP Internal Medicine; Referring Provider Internal Medicine; Visit Provider Internal Medicine
DX: Z12.31 Encounter for screening mammogram for malignant neoplasm of breast (principal); Z78.0 Asymptomatic menopausal state
CPT/HCPCS: 77063; 77067; 77080

== ENCOUNTER → 2025-01-19 | Outpatient (CLI) | payer OTHER, SELFPAY ==
--- NOTE | 2025-01-19 11:05 | RAD_ITS ---
PROCEDURE: L/S SPINE MIN 4 VIEWS 01/19/2025 REASON FOR EXAM: CHRONIC BACK PAIN TECHNIQUE: Single 4 view of the lumbar spine FINDINGS: Vertebrae: No vertebral fracture. Discs: Mild multilevel disc space narrowing. Alignment: Mild S shaped scoliosis with mild dextroscoliosis of the upper lumbar spine and levoscoliosis lower lumbar spine. 2 mm of retrolisthesis of L2 on L3 and 2 mm of anterolisthesis of L3 on L4. Other: Facet hypertrophy in the lower lumbar spine. RAD/L/S Spine Min 4 Views IMPRESSION: Mild S shaped scoliosis with degenerative disc disease and subluxation as descr ibed above. Reading Location: [id number]
--- NOTE | 2025-01-19 11:05 | RAD_ITS ---
PROCEDURE: HIP, UNI W/ PELVIS 2-3 VIEWS 01/19/2025 REASON FOR EXAM: RIGHT HIP PAIN TECHNIQUE: AP pelvis and two views of the right hip were obtained COMPARISON: None FINDINGS: Bones: Normal mineralization of the osseous structures is noted. There are no fractures or dislocations. Joints: Joint spaces are well preserved. SI joints are unremarkable. Pubic symphysis is unremarkable. Soft tissues: No suspicious or abnormal soft tissue masses are noted. Other: Phleboliths are seen in the pelvis. RAD/HIP, UNI W/ Pelvis 2-3 Views IMPRESSION: The pelvic and right hip study appears unremarkable. Reading Location: [id number]
[2025-01-19 15:59] LABS: Absolute Lymphocyte Count 2.92 X10^3/uL (0.83-4.51); Absolute Neutrophil Count 3.8 X10^3/uL (2.0-7.7); Basophil# 0.03 X10^3/uL; Basophil% 0.4 % (0-1); Eosinophil# 0.25 X10^3/uL; Eosinophils% 3.3 % (0-5); Hematocrit 43.4 % (37-47); Hemoglobin 14.2 g/dL (12.0-15.0); Lymphocyte # 2.92 X10^3/ul (0.83-4.51); Lymphocyte % 38.6 % (19-41); Mean Corp Hgb Conc 32.7 g/dL (32-36); Mean Corpuscular Hgb 29.4 pg (27.0-32.0); Mean Corpuscular Volume 89.9 fL (81-99); Mean Platelet Vol. 11.6 fl (6.2-12.0); Monocyte# 0.54 X10^3/uL; Monocyte% 7.1 % (0-10); NRBC Flagged by Analyzer 0 % (0-5); Neutrophil % 50.3 % (47-70); POSITIVE MORPHOLOGY YES; Platelet Count 182 K/mm3 (150-450); RBC Distribution Width CV 13.1 % (11.6-14.6); RBC Distribution Width SD 42.9 fl (35.1-43.9); Red Blood Count 4.83 M/mm3 (4.2-5.4); White Blood Count 7.6 K/mm3 (4.4-11.0)
[2025-01-19 16:21] LABS: Differential Indicated SCAN CRITERIA MET
[2025-01-19 16:50] LABS: ALB/GLOB Ratio 1.5 RATIO (0.9-2.4); AST(SGOT) 19 U/L (<=31); Alanine Aminotransfer ALT/SGPT 10 U/L (<=34); Albumin, Serum 4.3 g/dL (3.4-4.8); Alkaline Phosphatase 73 U/L (35-104); Anion Gap 12 (5-15); BUN 14 mg/dL (4-19); BUN/Creat Ratio 16.1 RATIO (10-20); Calcium,Total 9.3 mg/dL (7.6-11.0); Carbon Dioxide 22.3 mmol/L (21.0-32.0); Chloride 108 mmol/L (98-108); Cholesterol 182 mg/dL (<=200); Creatinine, Serum 0.84 mg/dL (0.70-1.20); EST Glomerular Filtration Rate 79 (>60); Globulin 2.9 g/dL (2.2-4.2); Glucose 98 mg/dL (70-99); High Density Lipoprotein 36 mg/dL; Low Density Lipoprotein Calc. 121 mg/dL; Potassium 4.1 mmol/L (3.3-5.1); Protein, Total 7.1 g/dL (5.9-8.4); Sodium Level 142 mmol/L (133-145); Total Bilirubin 0.32 mg/dL (0.00-1.30); Triglycerides 126 mg/dL; Very Low Density Lipoprotein 25 mg/dL (5-40); Vitamin D,25 Hydroxy 41.2 ng/mL (30-100); cholesterol:hdl ratio screen 5.06
[2025-01-19 17:19] LABS: Atypical Lymphocyte 1+ %; Reactive Lymphocyte 1+
== END | disposition home or self-care (01) ==
LOC: MTLAB 11:05
PROVIDERS: PCP Internal Medicine; Referring Provider Internal Medicine; Visit Provider Internal Medicine
DX: Z00.00 Encounter for general adult medical examination without abnormal findings (principal); M54.9 Dorsalgia, unspecified; G89.29 Other chronic pain; M25.551 Pain in right hip; F41.9 Anxiety disorder, unspecified; F32.9 Major depressive disorder, single episode, unspecified; M85.80 Other specified disorders of bone density and structure, unspecified site
CPT/HCPCS: 36415; 72110; 73502; 80053; 80061; 82306; 85025

== ENCOUNTER 2025-05-11 10:30 | Outpatient (RCR) | payer OTHER, SELFPAY ==
--- NOTE | 2025-04-28 12:50 | HP.PTEVAL ---
Patient's Visit Information Visit Information Visit Information: LUCI MCNALLY is a 59 year old F referred to Physical Therapy by KOTA Mulligan with a diagnosis of Spondylolisthesis L/anteriololthesis/ Radic. Date of Evaluation: 04/28/25 Physical Therapist: MIR Franklin Visit Plan Frequency: 2x /Week Duration: 6 Weeks Plan: 2X/ week for 6 weeks for neutral spine cores stability, hip strength, body mechanics, lifting techniques with HEP HEP: clam shells, PT with legs up 90/90 on ball, bug with knees bend (not 90/90...too much pain) and holding the big green physio ball Subjective Subjective: She can still do most everything she wants if she wants to pay the garcia. She has someone clean her house now. She has been sedentary since school let out due to pain. She tries not to do typical things. Steps are very hard for her. She does not have the same strength or the same gait she once had. She does not feel like herself when she walks. She can not play with her grandkids. She has been going to the chiropractor twice and it did not help. Symptoms: back pain on the R side, R sided hip pain, pain in the R groin and goes all the way down past the knee. She does not try lifting. It is hard to sit and if she does she has to put the weight on her L side. She has to do PT prior to the MRI. X-ray showed Spondylolithesis. She has never injured it. She reports that she has a heating pad and constantly tossing and turning. She does have muscle relaxer she takes before bed. 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 Sometimes if she bends over she can not get back up. 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 Pain Back pain: Pain Intensity (Out of 10): 2 R hip pain: Pain Intensity (Out of 10): 3 Pain Intensity Range: 6 Comment: in waiting room Objective Objective: Gait: walks with normal gait pattern with some evidence of hip weakness B MMT: R hip flex 15.5 and L 15.9 R knee ext 18 and L 21.2 R knee flex 12.3 and L 10.4 R hip abd 13.5 and L 14.5 R hip ext 8 and L 9.1 Pt is able to heel and toe raise. 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 Goal Time Frame: 6-8 Weeks Goal 3:: Be able to sit longer without having to weight shift off the R LE and with less pain Goal Time Frame: 6-8 Weeks Goal 4:: Be able to Squat to pick something up from the floor using her legs and keeping her back flat to avoid pain Goal Time Frame: 6-8 Weeks Goal 5:: Increase R hip strength (at the time of the eval: R hip abd 13.5 and L 14.5 R hip flex 15.5 and L 15.9) Goal Time Frame: 6-8 Weeks Rehabilitation Potential Rehabilitation Potential: Good Anticipated Interventions Patient/Client Instruction: Educate patient on: Condition and Plan of Care For the Purpose of:: To decrease pain, To increase ROM, To improve muscle performance and motor function, To improve ability to perform ADL's, To increase tolerance to activity/condition/position, To improve gait and locomotor functions, To improve health of tissue, To decrease soft tissue restriction and To increase flexibility/ROM Therapeutic Exercise to Include: Strength training, Body mechanics, Postural training, Neuromotor development, Passive ROM, Active ROM, Dynamic Lumbar Stabilization and Scapular Strength/Stabilization For the Purpose of:: To decrease pain, To improve nutrient delivery to tissue, To improve muscle performance and motor function, To improve ability to perform ADL's, To increase tolerance to activity/condition/position, To improve performance and independence with ADL's, To decrease level of supervision to perform tasks, To improve ability of physical actions for home/community/work/leisure, To improve health of tissue and To decrease soft tissue restriction Text: Thank you for the opportunity to evaluate your patient. For Medicare and Medicare HMO plans, please review the plan of care and approve it. It will need to be FAXED BACK to us at [phone] for Medicare purposes. For Medicare only, by signing this I certify the plan of care. Please let me know if there are questions or concerns regarding this plan of care. Physician Signature: Date:
--- NOTE | 2025-08-04 13:41 | HP.PT.NRP ---
Patient Information Patient Information: LUCI MCNALLY was seen in my office for initial evaluation on 04/28/25. The following Plan of Care was established for this patient: POC Established Initial Frequency: 2x /Week Initial Duration: 6 Weeks Anticipated Interventions Patient/Client Instruction: Educate patient on: Condition and Plan of Care For the Purpose of:: To decrease pain, To increase ROM, To improve muscle performance and motor function, To improve ability to perform ADL's, To increase tolerance to activity/condition/position, To improve gait and locomotor functions, To improve health of tissue, To decrease soft tissue restriction and To increase flexibility/ROM Therapeutic Exercise to Include: Strength training, Body mechanics, Postural training, Neuromotor development, Passive ROM, Active ROM, Dynamic Lumbar Stabilization and Scapular Strength/Stabilization For the Purpose of:: To decrease pain, To improve nutrient delivery to tissue, To improve muscle performance and motor function, To improve ability to perform ADL's, To increase tolerance to activity/condition/position, To improve performance and independence with ADL's, To decrease level of supervision to perform tasks, To improve ability of physical actions for home/community/work/leisure, To improve health of tissue and To decrease soft tissue restriction Last Seen Last Seen: This patient was last seen in our office 05/11/25. Pertinent comments regarding their Physical therapy will appear below: [facility] PT At this point I will be discontinuing this patient from physical therapy. I would be happy to see this patient again in the future if found appropriate by the physician. Thank you! Tiara Lee, MPT Balance/Gait/Functional tests Balance/Special Test Scores Oswestry Low Back Score: 14
== END 2025-05-11 19:00 | disposition home or self-care (01) ==
LOC: PT 10:30
PROVIDERS: PCP Internal Medicine; Referring Provider Student in an Organized Health Care Education/Training Program; Visit Provider Student in an Organized Health Care Education/Training Program
DX: M43.16 Spondylolisthesis, lumbar region (principal); M54.16 Radiculopathy, lumbar region
CPT/HCPCS: 97110; 97162

== ENCOUNTER → 2025-07-15 | Outpatient (CLI) | payer OTHER, SELFPAY ==
--- NOTE | 2025-07-15 13:11 | MRI_ITS ---
PROCEDURE: SPINE LUMBAR (ROUTINE) 07/15/2025 REASON FOR EXAM: LUMBAR RADICULOPATHY Low back for 5 6 years. Radiculopathy. TECHNIQUE: Procedure Code: MRISPL Modality: MR Procedure: SPINE LUMBAR (ROUTINE) COMPARISON: Radiographs of the lumbar spine dated 01/19/2025 FINDINGS: Vertebrae: The vertebral bodies are normal height. There is no compression fracture deformity. Schmorl's node is seen in the inferior endplate of L2. Vertebral hemangioma is present in the L4 vertebral body. Alignment: Alignment is maintained. There is no scoliosis. No significant spondylolisthesis appreciated. Mild straightening of the lumbar spine. Conus Medullaris: Ends normally at L1 L1-2: Unremarkable L2-3: Disc space narrowing and diffuse bulge. Facet arthropathy and ligamentum flavum hypertrophy. Slight left foraminal encroachment. No central stenosis. L3-4: Mild diffuse disc desiccation and loss of T2 signal. Mild disc bulge facet arthropathy and ligamentum flavum hypertrophy. Mild foraminal encroachment without impingement. No central stenosis. L4-5: Mild disc desiccation. Facet arthropathy and ligamentum flavum hypertrophy, moderate to severe. Bilateral foraminal encroachment more pronounced on the right than the left with slight mass effect on the exiting right L4 nerve. L5-S1: This space height is preserved. There is no central or foraminal stenosis. Mild facet arthropathy. Unremarkable appearance Sacrum: Of the sacrum Localizer: Visualized brain appears unremarkable. The soft tissues of the neck are unremarkable. Limited visualization of the abdominal structures and chest reveal no acute process. An atrophic right kidney is present. Pain MRI/Spine Lumbar (Routine) IMPRESSION: Mild degenerative disc disease at L4-5 with moderate facet arthropathy and liga mentum flavum hypertrophy accounting for right foraminal encroachment. Moderate degenerative disc disease at L2-3 with loss of disc space height and m ild uncovertebral spurring with foraminal encroachment but no stenosis. Reading Location: [facility]
== END | disposition home or self-care (01) ==
PROVIDERS: PCP Internal Medicine; Referring Provider Student in an Organized Health Care Education/Training Program; Visit Provider Student in an Organized Health Care Education/Training Program
DX: M54.16 Radiculopathy, lumbar region (principal); M43.16 Spondylolisthesis, lumbar region
CPT/HCPCS: 72148

== ENCOUNTER → 2025-09-01 | Outpatient (CLI) | payer OTHER, SELFPAY ==
[2025-09-01 12:12] LABS: CRP 6.65 mg/L (0.0-3.0)
[2025-09-02 14:08] LABS: ANTINUCLEAR ANTIBODIES DIRECT Negative (Negative)
== END | disposition home or self-care (01) ==
PROVIDERS: PCP Internal Medicine; Referring Provider Internal Medicine; Visit Provider Internal Medicine
DX: M19.90 Unspecified osteoarthritis, unspecified site (principal)
CPT/HCPCS: 36415; 85652; 86038; 86140; 86200; 86225; 86235; 86431

== ENCOUNTER → 2025-09-25 | Outpatient (CLI) | payer OTHER, SELFPAY ==
--- OUTSIDE RECORDS SUMMARY | 2025-09-25 07:19 | XMS RPT_ITS | CCD ---
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 Yesenia Manning Primary Care Provider [phone] Dr. Yesenia Manning Attending Provider [phone] Dr. Yesenia Manning Referring Provider [phone] Adelso, Radha Referring Unavailable Oleghe, Efewongbe Primary Care Unavailable Adelso, Radha Attending Unavailable Adelso, Radha Attending Unavailable Oleghe, Efewongbe Primary Care Unavailable Adelso, Radha Referring Unavailable Adelso, Radha Referring Unavailable Oleghe, Efewongbe Primary Care Unavailable Adelso, Radha Attending Unavailable Oleghe, Efewongbe Primary Care Unavailable Oleghe, Efewongbe Attending Unavailable Oleghe, Efewongbe Referring Unavailable Adelso, Radha Attending Unavailable Oleghe, Efewongbe Referring Unavailable Oleghe, Efewongbe Primary Care Unavailable Oleghe, Efewongbe Primary Care Unavailable Mery, Raynesford Attending Unavailable Adelso, Radha Attending Unavailable Oleghe, Efewongbe Primary Care Unavailable Oleghe, Efewongbe Referring Unavailable Oleghe, Efewongbe Primary Care Unavailable Oleghe, Efewongbe Attending Unavailable Oleghe, Efewongbe Referring Unavailable Allergies Allergy Classification Reported Allergen(s) Allergy Type Date of Onset Reaction(s) Facility (1 source) Erythromycin Drug Allergy 08-28-2023 Nausea [facility] (1 source) Erythromycin Drug Allergy 08-03-2025 [facility] Repository Medications Current Medications Medication Drug Class(es) Dates Sig (Normalized) Sig (Original) 24 hr buPROPion hydrochloride 150 mg extended release oral tablet (4 sources) Aminoketone Start: 05-10-2020 End: 11-12-2022 take 150 mg by mouth once daily Bupropion Hcl Active 150 MG PO DAILY November 12, 2022 9:39am DULoxetine 30 mg delayed release oral capsule (6 sources) Serotonin and Norepinephrine Reuptake Inhibitor Start: 10-31-2022 End: 01-04-2023 Duloxetine Active 0 .ROUTE .COMPLEX 180 January 04, 2023 1:47pm Take 1 capsule BID Start: 04-18-2021 End: 05-02-2021 take 30 mg by mouth twice daily Duloxetine Discontinued 30 MG PO TWICE A DAY 180 April 18, 2021 11:02am May 02, 2021 12:57pm Start: 03-21-2021 End: 04-18-2021 Duloxetine Discontinued 30 M G PO TWICE A DAY 60 March 20, 2021 11:00pm April 18, 2021 11:03am Take 30 mg daily for 5 days then increase to BID. ibandronic acid 150 mg oral tablet (2 sources) Bisphosphonate Start: 10-11-2021 End: 10-31-2022 take 1 tablet by mouth every month Ibandronate (Boniva) 150 mg tablet Active 150 MG PO EVERY MONTH October 31, 2022 4:53pm methenamine hippurate 1000 mg oral tablet (7 sources) Start: 03-21-2021 End: 12-19-2022 take 1 g by mouth twice daily Methenamine Hippurate Active 1 GM PO TWICE A DAY December 19, 2022 3:47pm 24 hr oxybutynin chloride 5 mg extended release oral tablet (6 sources) Cholinergic Muscarinic Antagonist Start: 01-18-2022 End: 04-19-2023 take 5 mg by mouth once daily Oxybutynin Chloride Active 5 MG PO DAILY April 19, 2023 11:48am Start: 12-14-2020 End: 03-21-2021 take 5 mg by mouth once daily Oxybutynin Chloride Disc ontinued 5 MG PO DAILY January 06, 2021 8:52am March 21, 2021 1:33pm traZODone hydrochloride 50 mg oral tablet (7 sources) Serotonin Reuptake Inhibitor Start: 07-16-2023 take 150 mg by mouth at bedtime Trazodone Active 150 MG PO AT BEDTIME 360 90 July 16, 2023 8:24am Start: 07-28-2020 End: 01-02-2023 take 150 mg by mouth at bedtime Trazodone Discontinued 150 MG PO AT BEDTIME 60 90 October 04, 2022 9:02am January 01, 2023 11:04pm Start: 05-10-2020 End: 07-28-2020 take 50 mg by mouth at bedtime Trazodone Discontinued 50 MG PO AT BEDTIME May 09, 2020 11:00pm July 28, 2020 3:15pm Completed/Discontinued Medications Medication Drug Class(es) Dates Sig (Normalized) Sig (Original) citalopram 20 mg oral tablet (4 sources) Serotonin Reuptake Inhibitor Start: 05-02-2021 End: 10-31-2022 take 20 mg by mouth once daily Citalopram Discontinued 20 MG PO DAILY July 13, 2021 3:45pm October 31, 2022 4:55pm Start: 05-10-2020 End: 03-21-2021 take 20 mg by mouth once daily Citalopram Discontinued 20 MG PO DAILY July 28, 2020 3:14pm March 21, 2021 1:55pm hydrOXYzine hydrochloride 25 mg oral tablet (7 sources) Antihistamine Start: 10-31-2022 End: 07-16-2023 take 1 tablet by mouth three times daily as needed for anxiety Hydroxyzine Hcl Discontinued 0 .ROUTE .COMPLEX July 15, 2023 2:00pm July 16, 2023 8:25am TAKE 1 TABLET BY MOUTH THREE TIMES A DAY NEEDED FOR ANXIETY 24 hr mirabegron 50 mg extended release oral tablet (4 sources) beta3-Adrenergic Agonist Start: 04-19-2021 End: 01-18-2022 take 50 mg by mouth once daily Mirabegron Discontinued 50 MG PO DAILY September 15, 2021 4:19pm January 18, 2022 2:58pm Start: 04-18-2021 End: 04-19-2021 take 1 tablet by mouth once daily Mirabegron (Myrbetriq) 25 mg tablet extended release 24 hr Discontinued 50 MG PO DAILY April 18, 2021 1:11pm April 19, 2021 3:55pm Start: 03-21-2021 End: 04-18-2021 take 1 tablet by mouth once daily Mirabegron (Myrbetriq) 25 mg tablet extended release 24 hr Discontinued 25 MG PO DAILY March 20, 2021 11:00pm April 18, 2021 1:11pm Problems Active Problems Problem Classification Problem Date Documented Da te Episodic/Chronic Abdominal pain (1 source) Abdominal discomfort; Translations: [Unspecified abdominal pain] 03-21-2021 Episodic Anxiety disorders (3 sources) Mixed anxiety and depressive disorder; Translations: [Anxiety disorder, unspecified] 03-21-2021 Chronic Disorders of lipid metabolism (2 sources) Hyperlipidemia; Translations: [Hyperlipidemia, unspecified] 08-28-2023 Chronic Mycoses (1 source) Recurrent candidiasis of vagina; Translations: [Recurrent candidiasis of vagina] 10-31-2022 Episodic Nephritis; nephrosis; renal sclerosis (2 sources) Atrophy of kidney; Translations: [Atrophy of kidney (terminal)] 10-31-2021 Chronic Nonspecific chest pain (1 source) Chest pain; Translations: [Chest pain, unspecified] 05-10-2020 Episodic Other bone disease and musculoskeletal deformities (1 source) Osteopenia with high fracture risk; Translations: [Other specified disorders of bone density and structure, unspecified site] 10-31-2022 Episodic Other bone disease and musculoskeletal deformities (1 source) Other specified disorders of bone density and structure, unspecified site; Translations: [Disorder of bone and cartilage, unspecified] 08-28-2023 Episodic Other diseases of bladder and urethra (1 source) Overactive bladder; Translations: [Overactive bladder] 08-28-2023 Chronic Other diseases of bladder and urethra (1 source) Overactive bladder; Translations: [Hypertonicity of bladder] 08-28-2023 Chronic Other nervous system disorders (1 source) Other chronic pain; Translations: [Other chronic pain] Onset: 01-25-2025 Chronic Residual codes; unclassified (1 source) Postmenopausal state; Translations: [Asymptomatic menopausal state] 07-31-2021 Episodic Residual codes; unclassified (1 source) Family history of cancer of colon; Translations: [Family history of malignant neoplasm of digestive organs] 10-31-2021 Episodic Spondylosis; intervertebral disc disorders; other back problems (4 sources) Radiculopathy, lumbar region; Translations: [Lumbago with sciatica, right side] Onset: 01-11-2025 Episodic Past or Other Problems Problem Classification Problem Date Documented Da te Episodic/Chronic Other acquired deformities (1 source) Spondylolisthesi s, lumbar region; Translations: [Spondylolisthes is, lumbar region] Onset: 01-27-2025 Episodic Other non-traumatic joint disorders (1 source) Pain in right hip; Translations: [Pain in right hip] Onset: 01-11-2025 Episodic Results Test Name Value Interpretation Reference Range Facility Orthopedic Visit Reporton Orthopedic Visit Report [facility] [address] [place] [address] [address] [place] [address] OFFICE VISIT Date of Service: 08/03/25 MR#: [id number] Acct: [id number] Name: LUCI MCNALLY Rep #: [id number] : 1965 Provider: KOTA Mulligan Age/Sex: 60/F Location: [facility] [place] Status: Signed Intake Vital Signs 01/25/25 14:44 08/03/25 08:02 Height 5 ft 6 in 5 ft 6 in Weight: 150 lb BMI 24.2 Intake Visit Reasons: LUMBAR SPINE Chief Complaint: Lumbar spine MRI review Accompanied by: Self Is patient in pain?: Yes Pain scale (1-10): 8 Allergies erythromycin base Allergy (Verified 08/03/25 08:03) Nausea Medications ???Medication ???Instructions ???Recorded ???Confirmed ???Type hydroxyzine HCl 25 mg tablet See Rx Instructions .Route 4 08/03/25 Rx .COMPLEX #270 tabs lorazepam 1 mg tablet 0.5 mg (1/2 x 1 mg) PO DAILY PRN 0 02/28/24 08/03/25 Rx anxiety #14 tabs methenamine hippurate 1 gram tablet See Rx Instructions .Route 04/0108/03/25 Rx .COMPLEX #180 tabs bupropion HCl 150 mg 24 hr tablet, 150 mg PO DAILY depression #90 t abs 04/09/25 08/03/25 Rx extended release duloxetine 30 mg capsule,delayed See Rx Instructions .Route 5 08/03/25 Rx release .COMPLEX 3 months #180 caps oxybutynin chloride 5 mg 5 mg PO DAILY #90 TABLETS 04/09/25 08/03/25 Rx tablet,extended release 24 hr trazodone 50 mg tablet 150 mg (3 x 50 mg) PO QHS PRN 03/3008/03/25 Rx Sleep 3 months #360 tabs cyclobenzaprine 10 mg tablet 10 mg PO TID PRN muscle spasm #60 08/03/25 08/03/25 Rx tabs gabapentin 300 mg capsule 300 mg PO QHS #30 caps 08/03/25 Rx Have you fallen in the past year?: No PFSH Medical History Attention and concentration deficit Right hip pain Chronic back pain Health care maintenance Panic attacks Recurrent candidiasis of vagina Hyperlipidemia Osteopenia with high risk of fracture Post-menopausal Preventative health care Anxiety and depression Atrophy of right kidney Overactive bladder Abdominal discomfort Surgical History History of colonoscopy deliv NOS-unsp Family History Father Cancer rectal Colon cancer Social History Smoking Status: Never smoker alcohol intake: current alcohol intake frequency: holidays/special occasions only substance use type: does not use HPI LUMBAR SPINE Details: This documentation accurately reflects the service provided and the decisions made by me, KOTA Mulligan 08/03/25 0756. Part of today???s visit was documented by Nate Meyer MA, acting as scribe. LUCI MCNALLY is a 60 year old F here today for lumbar spine MRI review. Patient states that her pain is an 8 today. She would like to go over the MRI results to discus what the next step would be. Patient has had [address] Wilson. She went to Dr. Wilson yesterday, and he looked over the MRI results and stated that the patient needs to see a spinal surgeon. The injection did help for a little bit. Said that the injection would give her 1 to 2 weeks of relief. Patient states that she is unable to do physical therapy, she did it, and the pain had gotten worse for her. She is currently using a cane right now, because of weakness on the right side. LUCI MCNALLY is a 59 year old F here today for Lumbar spine pain. The pain is in the lower back on the right side. There are times when it pops out of place, it is very painful when it pops. The lower back hurts all the time. This has been going on for about 5 years ago. The last couple years it has gotten worse. Patient doesn't remember injuring her lower back. Patient can feel that her walking has changed. Patient does have tingling and numbness down in the right leg and sometimes the toes. Says that she also gets right sided groin pain and pain down the lateral and posterior leg. Walking increases her pain. When sitting her pain does get better if she has a backrest. Bending over and standing up pops her back out. Patient has been seeing a chiropractor, but nothing seems to help. She has also been doing stretches on her own multiple times per day. She uses heat which also helps her pin. Patient denies any injuries, or surgeries on her lower back. Bending over and doing house work makes the pain worse. When she bends over she feels a painful popping. Laying heating pad helps the pain. The pain decreases when her legs are propped up. She has seen a chiropractor in the past about 2 years ago with no benefit. No surgeries no injections no PT. She is only to take Tylenol (more content not included)... Normal [facility] Spine Lumbar (Routine)on Spine Lumbar (Routine) [facility] Imaging Services [address] [place] [place] [address] [id number] Spine Lumbar (Routine) MR#: [id number] Acct: [id number] Name: LUCI MCNALLY Rep #: [id number] : 1965 F 59 From: Augusto berman MD PCP: Dr. Yesenia Manning MD Status: REG CLI Study: Spine Lumbar (Routine) Date of Exam: 07/15/25 Exam# [id number] Ordering Dr: Radha Darden PROCEDURE: SPINE LUMBAR (ROUTINE) 07/15/2025 REASON FOR EXAM: LUMBAR RADICULOPATHY Low back for 5 6 years. Radiculopathy. TECHNIQUE: Procedure Code: MRISPL Modality: MR Procedure: SPINE LUMBAR (ROUTINE) COMPARISON: Radiographs of the lumbar spine dated 01/19/2025 FINDINGS: Vertebrae: The vertebral bodies are normal height. There is no compression fracture deformity. Schmorl's node is seen in the inferior endplate of L2. Vertebral hemangioma is present in the L4 vertebral body. Alignment: Alignment is maintained. There is no scoliosis. No significant spondylolisthesis appreciated. Mild straightening of the lumbar spine. Conus Medullaris: Ends normally at L1 L1-2: Unremarkable L2-3: Disc space narrowing and diffuse bulge. Facet arthropathy and ligamentum flavum hypertrophy. Slight left foraminal encroachment. No central stenosis. L3-4: Mild diffuse disc desiccation and loss of T2 signal. Mild disc bulge facet arthropathy and ligamentum flavum hypertrophy. Mild foraminal encroachment without impingement. No central stenosis. L4-5: Mild disc desiccation. Facet arthropathy and ligamentum flavum hypertrophy, moderate to severe. Bilateral foraminal encroachment more pronounced on the right than the left with slight mass effect on the exiting right L4 nerve. L5-S1: This space height is preserved. There is no central or foraminal stenosis. Mild facet arthropathy. Unremarkable appearance Sacrum: Of the sacrum Localizer: Visualized brain appears unremarkable. The soft tissues of the neck are unremarkable. Limited visualization of the abdominal structures and chest reveal no acute process. An atrophic right kidney is present. Pain MRI/Spine Lumbar (Routine) IMPRESSION: Mild degenerative disc disease at L4-5 with moderate facet arthropathy and ligamentum flavum hypertrophy accounting for right foraminal encroachment. Moderate degenerative disc disease at L2-3 with loss of disc space height and mild uncovertebral spurring with foraminal encroachment but no stenosis. Reading Location: [facility] CC: KOTA Mulligan; Dr. Yesenia Manning MD Quality Assurance Test Program Manager: Signed Normal [facility] Inital Evaluation (1) - PTon 04-28-2025 Inital Evaluation (1) - PT [facility] Physical Therapy [facility] [address] [place] [address] [address] [place] [address] / REHABILITATION SERVICES INITIAL EVALUATION MR#: [id number] Acct: [id number] Name: LUCI MCNALLY Rep #: [id number] : 1965 59 From: Tiara HESTER Referring Dr.: KOTA Mulligan Status: REG RCR Insurance: [facility] SELF PAY INSURANCE Patient's Visit Information Visit Information Visit Information: LUCI MCNALLY is a 59 year old F referred to Physical Therapy by KOTA Mulligan with a diagnosis of Spondylolisthesis L/anteriololthesis/ Radic. Date of Evaluation: 04/28/25 Physical Therapist: MIR Franklin Visit Plan Frequency: 2x /Week Duration: 6 Weeks Plan: 2X/ week for 6 weeks for neutral spine cores stability, hip strength, body mechanics, lifting techniques with HEP HEP: clam shells, PT with legs up 90/90 on ball, bug with knees bend (not 90/90...too much pain) and holding the big green physio ball Subjective Subjective: She can still do most everything she wants if she wants to pay the garcia. She has someone clean her house now. She has been sedentary since school let out due to pain. She tries not to do typical things. Steps are very hard for her. She does not have the same strength or the same gait she once had. She does not feel like herself when she walks. She can not play with her grandkids. She has been going to the chiropractor twice and it did not help. Symptoms: back pain on the R side, R sided hip pain, pain in the R groin and goes all the way down past the knee. She does not try lifting. It is hard to sit and if she does she has to put the weight on her L side. She has to do PT prior to the MRI. X-ray showed Spondylolithesis. She has never injured it. She reports that she has a heating pad and constantly tossing and turning. She does have muscle relaxer she takes before bed. 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 Sometimes if she bends over she can not get back up. 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 Pain Back pain: Pain Intensity (Out of 10): 2 R hip pain: Pain Intensity (Out of 10): 3 Pain Intensity Range: 6 Comment: in waiting room Objective Objective: Gait: walks with normal gait pattern with some evidence of hip weakness B MMT: R hip flex 15.5 and L 15.9 R knee ext 18 and L 21.2 R knee flex 12.3 and L 10.4 R hip abd 13.5 and L 14.5 R hip ext 8 and L 9.1 Pt is able to heel and toe raise. Pt has has increase pain with toe raising in her back and some LOB SLUMP Test + on the R -SLR B good piriformis muscle length Good HS length Trunk AROM: flexion 50%, ext 50%, SB B 75% Balance/Special Test Scores Oswestry Low Back Score: 14 Goals Goal 1:: I HEP Goal Time Frame: 6-8 Weeks Goal 2:: Be able to get dishes out of infectious diseases physician without pain Goal Time Frame: 6-8 Weeks Goal 3:: Be able to sit longer without having to weight shift off the R LE and with less pain Goal Time Frame: 6-8 Weeks Goal 4:: Be able to Squat to pick something up from the floor using her legs and keeping her back flat to avoid pain Goal Time Frame: 6-8 Weeks Goal 5:: Increase R hip strength (at the time of the eval: R hip abd 13.5 and L 14.5 R hip flex 15.5 and L 15.9) Goal Time Frame: 6-8 Weeks Rehabilitation Potential Rehabilitation Potential: Good Anticipated Interventions Patient/Client Instruction: Educate patient on: Condition and Plan of Care For the Purpose of:: To decrease pain, To increase ROM, To improve muscle performance and motor function, To improve ability to perform ADL's, To increase tolerance to activity/condition/po sition, To improve gait and locomotor functions, To improve health of tissue, To decrease soft tissue restriction and To increase flexibility/ROM Therapeutic Exercise to Include: Strength training, Body mechanics, Postural training, Neuromotor development, Passive ROM, Active ROM, Dynamic Lumbar Stabilization and Scapular Strength/Stabilizatio n For the Purpose of:: To decrease pain, To improve nutrient delivery to tissue, To improve muscle performance and motor function, To improve ability to perform ADL's, To increase tolerance to activity/condition/po sition, To improve performance and independence with ADL's, To decrease level of supervision to perform tasks, To improve ability of physical actions for home/community/work/l eisure, To improve health of tissue and To decrease soft tissue restriction Text: Thank you for the opportunity to evaluate your patient. For Medicare and Medicare HMO plans, please review the plan of care and approve it. It will need to be FAXED BACK to us at [phone] for Medicare purposes. For Medicare only, by signing this I certify the plan of care. Please let me k (more content not included)... Normal [facility] L/S Spine Bending Flex/Harmony 01-25-2025 L/S Spine Bending Flex/Ext [facility] Imaging Services [address] [place] [address] L/S Spine Bending Flex/Ext MR#: [id number] Acct: [id number] Name: LUCI MCNALLY Rep #: [id number] : 1965 F 59 From: Hong Orta MD PCP: Dr. Yesenia Manning MD Status: DEP AMB Study: L/S Spine Bending Flex/Ext Date of Exam: 01/25 Exam# [id number] Ordering Dr: Radha Darden PROCEDURE: L/S SPINE BENDING FLEX/EXT 01/25/2025 REASON FOR EXAM: CHRONIC PAIN, RADIATES TO LEFT HIP TECHNIQUE: Lateral views of the lumbar spine and flexion and extension FINDINGS: Vertebrae: No acute fracture. Discs: Focal disc space narrowing and osteophyte formation at L2/L3 consistent with degenerative disc disease. Alignment: 2 mm of anterolisthesis of L3 on L4 which is unchanged on the flexion and extension views. Other: Facet hypertrophy throughout the lumbar spine. RAD/L/S Spine Bending Flex/Ext IMPRESSION: Degenerative disc disease with 2 mm of anterolisthesis of L3 on L4 which is unchanged on the flexion and extension views. Reading Location: [facility] CC: KOTA Mulligan; Dr. Yesenia Manning MD Quality Assurance Test Program Manager: Signed Normal [facility] Orthopedic Visit Reporton Orthopedic Visit Report [facility] [address] [place] [phone] OFFICE VISIT Date of Service: 01/25/25 MR#: [id number] Acct: [id number] Name: LUCI MCNALLY Rep #: [id number] : 1965 Provider: KOTA Mulligan Age/Sex: 59/F Location: [facility] [place] Status: Signed Intake Vital Signs 01/11/25 14:56 01/25/25 14:44 Height 5 ft 6 in 5 ft 6 in Weight: 156 lb BMI 25.2 Intake Visit Reasons: LUMBAR SPINE Chief Complaint: Lumbar spine pain Accompanied by: Self Is patient in pain?: Yes Pain scale (1-10): 4 Allergies erythromycin base Allergy (Verified 01/25/25 14:47) Nausea Medications ???Medication ???Instructions ???Recorded ???Confirmed ???Type hydroxyzine HCl 25 mg tablet See Rx Instructions .Route 4 01/25/25 Rx .COMPLEX #270 tabs lorazepam 1 mg tablet 0.5 mg (1/2 x 1 mg) PO DAILY PRN 0 02/28/24 01/25/25 Rx anxiety #14 tabs bupropion HCl 150 mg 24 hr tablet, 150 mg PO DAILY depression #90 t abs 04/28/24 01/25/25 Rx extended release duloxetine 30 mg capsule,delayed See Rx Instructions .Route 4 01/25/25 Rx release .COMPLEX 3 months #180 caps methenamine hippurate 1 gram tablet See Rx Instructions .Route 04/0101/25/25 Rx .COMPLEX #180 tabs oxybutynin chloride 5 mg 5 mg PO DAILY #90 TABLETS 04/28/24 01/25/25 Rx tablet,extended release 24 hr trazodone 50 mg tablet 150 mg (3 x 50 mg) PO QHS PRN 04/0101/25/25 Rx Sleep 3 months #360 tabs methocarbamol 500 mg tablet 500 mg PO TID PRN pain/spasms #60 01/25/25 01/25/25 Rx tabs Have you fallen in the past year?: Yes PFSH Medical History Attention and concentration deficit Right hip pain Chronic back pain Health care maintenance Panic attacks Recurrent candidiasis of vagina Hyperlipidemia Osteopenia with high risk of fracture Post-menopausal Preventative health care Anxiety and depression Atrophy of right kidney Overactive bladder Abdominal discomfort Surgical History History of colonoscopy deliv NOS-unsp Family History Father Cancer rectal Colon cancer Social History Smoking Status: Never smoker alcohol intake: current alcohol intake frequency: holidays/special occasions only substance use type: does not use HPI LUMBAR SPINE Details: This documentation accurately reflects the service provided and the decisions made by me, KOTA Mulligan 01/25/25 3336. Part of today???s visit was documented by Nate Meyer MA, acting as scribe. LUCI MCNALLY is a 59 year old F here today for Lumbar spine pain. The pain is in the lower back on the right side. There are times when it pops out of place, it is very painful when it pops. The lower back hurts all the time. This has been going on for about 5 years ago. The last couple years it has gotten worse. Patient doesn't remember injuring her lower back. Patient can feel that her walking has changed. Patient does have tingling and numbness down in the right leg and sometimes the toes. Says that she also gets right sided groin pain and pain down the lateral and posterior leg. Walking increases her pain. When sitting her pain does get better if she has a backrest. Bending over and standing up pops her back out. Patient has been seeing a chiropractor, but nothing seems to help. She has also been doing stretches on her own multiple times per day. She uses heat which also helps her pin. Patient denies any injuries, or surgeries on her lower back. Bending over and doing house work makes the pain worse. When she bends over she feels a painful popping. Laying heating pad helps the pain. The pain decreases when her legs are propped up. She has seen a chiropractor in the past about 2 years ago with no benefit. No surgeries no injections no PT. She is only to take Tylenol due to only having 1 kidney. Patient denies any diabetes, no heart or lung issues or blood thinners. Patient has a hx of osteopenia and was given a medicatio that made her ill so now she just takes vitamin D and calcium supplements. Patient has an abdominal scar. Ortho Exam General General: Yes no acute distress Neurologic: Yes alert and Yes oriented x3 Spine SPINE TESTING CERVICAL THORACIC LUMBAR Musculoskeletal Strength 0=absent - 5=normal Details: Neurological exam of the lower extremities shows 5x5 power. Normal sensations across all dermatomes. No hyperreflexia. No midline tenderness and mild right paraspinal tenderness. Coding Level of Care Code Off vis,new,level 4 Diagnoses (more content not included)... Normal [facility] CBC W/Diff, Automatedon 12-30 ATYPICAL LYMPH 1+ Normal [facility] Comment on above: Performed By: #### L 500.4050, L500.4100, L100.0100, L506.1001 #### [facility] [address] [place], [address] REACTIVE LYMPH 1+ Normal [facility] Comment on above: Performed By: #### L 500.4050, L500.4100, L100.0100, L506.1001 #### [facility] [address] [place], [address] Comprehensive Metabolic Prof ilon 01-19-2025 Albumin [Mass/Vol] 4.3 g/dL Normal 3.4-4.8 [facility] Comment on above: Performed By: #### L 500.4050, L500.4100, L100.0100, L506.1001 #### [facility] [address] [place], [address] Albumin/Globulin [Mass ratio] 1.5 {ratio} Normal 0.9-2.4 [facility] Comment on above: Performed By: #### L 500.4050, L500.4100, L100.0100, L506.1001 #### [facility] [address] [place], [address] ALK PHOS 73 U/L Normal 35-104 [facility] Comment on above: Performed By: #### L 500.4050, L500.4100, L100.0100, L506.1001 #### [facility] [address] [place], [address] ALT [Catalytic activity/Vol] 10 U/L Normal <=34 [facility] Comment on above: Performed By: #### L 500.4050, L500.4100, L100.0100, L506.1001 #### [facility] [address] [place], [address] AST [Catalytic activity/Vol] 19 U/L Normal <=31 [facility] Comment on above: Performed By: #### L 500.4050, L500.4100, L100.0100, L506.1001 #### [facility] [address] [place], [address] Bilirubin [Mass/Vol] 0.32 mg/dL Normal 0.00-1.[address] [facility] Comment on above: Performed By: #### L 500.4050, L500.4100, L100.0100, L506.1001 #### [facility] [address] [place], [address] BUN/CRE 16.1 RATIO Normal 10-20 [facility] Comment on above: Performed By: #### L 500.4050, L500.4100, L100.0100, L506.1001 #### [facility] [address] [place], [address] Calcium [Mass/Vol] 9.3 mg/dL Normal 7.6-11.0 [facility] Comment on above: Performed By: #### L 500.4050, L500.4100, L100.0100, L506.1001 #### [facility] [address] [place], [address] Chloride [Moles/Vol] 108 mmol/L Normal 98-[address] [facility] Comment on above: Performed By: #### L 500.4050, L500.4100, L100.0100, L506.1001 #### [facility] [address] [place], [address] CO2 [Moles/Vol] 22.3 mmol/L Normal 21.0-32.0 [facility] Comment on above: Performed By: #### L 500.4050, L500.4100, L100.0100, L506.1001 #### [facility] [address] [place], [address] Creatinine [Mass/Vol] 0.84 mg/dL Normal 0.70-1.20 [facility] Comment on above: Performed By: #### L 500.4050, L500.4100, L100.0100, L506.1001 #### [facility] [address] [place], [address] GAP 12 Normal 5-15 [facility] Comment on above: Performed By: #### L 500.4050, L500.4100, L100.0100, L506.1001 #### [facility] [address] [place], [address] GFR/1.73 sq M.predicted among non-blacks MDRD (S/P/Bld) [Vol rate/Area] 79 mL/min/{1.73_m2} Normal >60 [facility] Comment on above: Result Comment: mL/m in/1.73m2 CKD-EPI Creatinine Equation (2020) Performed By: #### L 500.4050, L500.4100, L100.0100, L506.1001 #### [facility] [address] [place], [address] Globulin (S) [Mass/Vol] 2.9 g/dL Normal 2.2-4.2 [facility] Comment on above: Performed By: #### L 500.4050, L500.4100, L100.0100, L506.1001 #### [facility] [address] [place], [address] Glucose [Mass/Vol] 98 mg/dL Normal 70-99 [facility] Comment on above: Performed By: #### L 500.4050, L500.4100, L100.0100, L506.1001 #### [facility] [address] [place], [address] Potassium [Moles/Vol] 4.1 mmol/L Normal 3.3-5.1 [facility] Comment on above: Performed By: #### L 500.4050, L500.4100, L100.0100, L506.1001 #### [facility] [address] [place], [address] Sodium [Moles/Vol] 142 mmol/L Normal 133-145 [facility] Comment on above: Performed By: #### L 500.4050, L500.4100, L100.0100, L506.1001 #### [facility] [address] [place], [address] T PROT 7.1 g/dL Normal 5.9-8.4 [facility] Comment on above: Performed By: #### L 500.4050, L500.4100, L100.0100, L506.1001 #### [facility] [address] [place], [address] Urea nitrogen [Mass/Vol] 14 mg/dL Normal 01-16 [facility] Comment on above: Performed By: #### L 500.4050, L500.4100, L100.0100, L506.1001 #### [facility] [address] [place], [place], [address] HIP, UNI W/ Pelvis 2-3 Views on 01-19-2025 HIP, UNI W/ Pelvis 2-3 Views [facility] Imaging Services [address] [place], [place] [address] HIP, UNI W/ Pelvis 2-3 Views MR#: [id number] Acct: [id number] Name: LUCI MCNALLY Rep #: [id number] : 1965 F 59 From: Ama Burch PCP: Dr. Yesenia Manning MD Status: REG CLI Study: HIP, UNI W/ Pelvis 2-3 Views Date of Exam: Exam# [id number] Ordering Dr: Yesenia Manning MD PROCEDURE: HIP, UNI W/ PELVIS 2-3 VIEWS 01/19/2025 REASON FOR EXAM: RIGHT HIP PAIN TECHNIQUE: AP pelvis and two views of the right hip were obtained COMPARISON: None FINDINGS: Bones: Normal mineralization of the osseous structures is noted. There are no fractures or dislocations. Joints: Joint spaces are well preserved. SI joints are unremarkable. Pubic symphysis is unremarkable. Soft tissues: No suspicious or abnormal soft tissue masses are noted. Other: Phleboliths are seen in the pelvis. RAD/HIP, UNI W/ Pelvis 2-3 Views IMPRESSION: The pelvic and right hip study appears unremarkable. Reading Location: [id number] CC: Dr. Yesenia Manning MD Quality Assurance Test Program Manager: Signed Normal [facility] L/S Spine Min 4 Viewson 12-30 L/S Spine Min 4 Views [facility] Imaging Services [address] [place], [place] [id number] L/S Spine Min 4 Views MR#: [id number] Acct: [id number] Name: LUCI MCNALLY Rep #: [id number] : 1965 F 59 From: Hong Orta MD PCP: Dr. Yesenia Manning MD Status: REG CLI Study: L/S Spine Min 4 Views Date of Exam: 01/19/25 Exam# [id number] Ordering Dr: Yesenia Manning MD PROCEDURE: L/S SPINE MIN 4 VIEWS 01/19/2025 REASON FOR EXAM: CHRONIC BACK PAIN TECHNIQUE: Single 4 view of the lumbar spine FINDINGS: Vertebrae: No vertebral fracture. Discs: Mild multilevel disc space narrowing. Alignment: Mild S shaped scoliosis with mild dextroscoliosis of the upper lumbar spine and levoscoliosis lower lumbar spine. 2 mm of retrolisthesis of L2 on L3 and 2 mm of anterolisthesis of L3 on L4. Other: Facet hypertrophy in the lower lumbar spine. RAD/L/S Spine Min 4 Views IMPRESSION: Mild S shaped scoliosis with degenerative disc disease and subluxation as described above. Reading Location: [id number] CC: Dr. Yesenia Manning MD Quality Assurance Test Program Manager: Signed Normal [facility] Lipid Profileon 01-19-2025 CHOL:HDL 5.06 Normal [facility] Comment on above: Performed By: #### L 500.4050, L500.4100, L100.0100, L506.1001 #### [facility] [address] [place], [place], [id number] Cholesterol [Mass/Vol] 182 mg/dL Normal <=200 [facility] Comment on above: Result Comment: Chol esterol level, Desirable <200 mg/dL Borderline high cholesterol 200-239 mg/dL High cholesterol >=240 mg/dL Recommendations of the NCEP Adult Treatment Panel for the following risk-cutoff thresholds for the [place] population. Performed By: #### L 500.4050, L500.4100, L100.0100, L506.1001 #### [facility] [address] [place], [address] Cholesterol in HDL [Mass/Vol] 36 mg/dL Low [facility] Comment on above: Result Comment: Caitie onal Cholesterol Education Program (NCEP) guidelines: <40 mg/dL: Low HDL-cholesterol (major risk factor for CHD) >= 60 mg/dL: High HDL-cholesterol (negative risk factor for CHD) HDL-cholesterol is affected by a number of factors, e.g. smoking, exercise, hormones, sex and age. Performed By: #### L 500.4050, L500.4100, L100.0100, L506.1001 #### [facility] [address] [place], [address] Cholesterol in LDL [Mass/Vol] 121 mg/dL Normal [facility] Comment on above: Result Comment: Bord estivc=142-157 mg/dL Higher Ucqx=754 mg/dL or greater Performed By: #### L 500.4050, L500.4100, L100.0100, L506.1001 #### [facility] [address] [place], [address] Cholesterol in VLDL [Mass/Vol] 25 mg/dL Normal 5-40 [facility] Comment on above: Performed By: #### L 500.4050, L500.4100, L100.0100, L506.1001 #### [facility] [address] [place], [address] Triglyceride [Mass/Vol] 126 mg/dL Normal [facility] Comment on above: Result Comment: The drugs N-Acetylcysteine and Metamizole may falsely depress this assay. Normal range: <150 mg/dL Borderline High: 150-199 mg/dL High: 200-499 mg/dL Very High: >500 mg/dL Performed By: #### L 500.4050, L500.4100, L100.0100, L506.1001 #### [facility] [address] [place], [address] Vitamin D,25 Hydroxyon 01-19 Vitamin D 25-OH 41.2 ng/mL Normal 30-100 [facility] Comment on above: Result Comment: Melanie min D Status Deficiency: <20 ng/mL (50nmol/L) Insufficiency: 20-30 ng/mL (50-75 nmol/L) Sufficiency: 30-100 ng/mL (75-250 nmol/L) Toxicity: >100 ng/mL (>250 nmol/L) Performed By: #### L 500.4050, L500.4100, L100.0100, L506.1001 ####[facility] [id number] [place], [address] Internal Medicine Office Vis iton 01-11-2025 Internal Medicine Office Visit [facility] [address] [place], [place] [address] OFFICE VISIT Date of Service: 01/11/25 MR#: [id number] Acct: [id number] Name: LUCI MCNALLY Rep #: [id number] : 1965 Provider: Dr. Yesenia richter MD Age/Sex: 59/F Location: [facility] [place] Status: Signed Intake Vital Signs 02/28/24 13:41 01/11/25 14:56 Height 5 ft 6 in 5 ft 6 in Weight: 154 lb BMI 24.8 BP 112/60 Blood Pressure Location Lt brachial Position Sitting Respiration 18 Pulse 80 Pulse Source Monitor Temp 97.8 F Temp Source Temporal Pulse Oximetry (%) 96 Oxygen Delivery Method room air Intake Visit Reasons: yearly Chief Complaint: yearly Is patient in pain?: No Allergies erythromycin base Allergy (Verified 01/11/25 14:54) Nausea Medications ???Medication ???Instructions ???Recorded ???Confirmed ???Type hydroxyzine HCl 25 mg tablet See Rx Instructions .Route 4 01/11/25 Rx .COMPLEX #270 tabs lorazepam 1 mg tablet 0.5 mg (1/2 x 1 mg) PO DAILY PRN 0 02/28/24 01/11/25 Rx anxiety #14 tabs bupropion HCl 150 mg 24 hr tablet, 150 mg PO DAILY depression #90 t abs 04/28/24 01/11/25 Rx extended release duloxetine 30 mg capsule,delayed See Rx Instructions .Route 4 01/11/25 Rx release .COMPLEX 3 months #180 caps methenamine hippurate 1 gram tablet See Rx Instructions .Route 04/0101/11/25 Rx .COMPLEX #180 tabs oxybutynin chloride 5 mg 5 mg PO DAILY #90 TABLETS 04/28/24 01/11/25 Rx tablet,extended release 24 hr trazodone 50 mg tablet 150 mg (3 x 50 mg) PO QHS PRN 04/0101/11/25 Rx Sleep 3 months #360 tabs PFSH Medical History (Updated 01/11/25 @ 17:[address] Yesenia Manning MD) Attention and concentration deficit Right hip pain Chronic back pain Health care maintenance Panic attacks Recurrent candidiasis of vagina Hyperlipidemia Osteopenia with high risk of fracture Post-menopausal Preventative health care Anxiety and depression Atrophy of right kidney Overactive bladder Abdominal discomfort Surgical History History of colonoscopy deliv NOS-unsp Family History Father Cancer rectal Colon cancer Social History Smoking Status: Never smoker alcohol intake: current alcohol intake frequency: holidays/special occasions only substance use type: does not use HPI HPI Chief Complaint: yearly Details: LUCI MCNALLY, is a 59 F who presents to the office today for follow-up of her chronic conditions. Also has some concerns. History of chronic back pain which has been progressively worsening. Lower back, right hip area with occasional radiation down right posterior thigh, anterior thigh and hip.Measures so far including seeing a Chiropractor have not been helpful. No numbness or tingling down her extremities. She also questions a diagnosis of ADHD. She states that as a child, she was quite restless, sitting and paying atttention in class was difficult. Father did not really seek medical care for her or her brother so the diagnosis was never made. As an adult, she states that she has learned to cope with the symptoms but they are largely still present. She is not open to testing because she does not believe she will jacket changer. Currently on Wellbutrin. Other chronic medical conditions are stable. As above, currently on Wellbutrin. Also on duloxetine and trazodone which she takes as needed at night. No new concerns in that regard. ROS Const Constitutional: No body ache, chills, excessive sweating, fatigue, fever(s), frequent falls, headache(s), snoring, weight change, sleep problems, abnormal sleep pattern or change in appetite Eyes Eyes: No blurry vision, change in vision, eye pain or Light sensitivity ENT ENT: No abnormal hearing, ear or mastoid pain, tinnitus, nasal congestion, headache(s), neck pain or sore throat Resp Respiratory: No cough, shortness of breath, snoring or wheezing Cardio Cardiology: No chest pain at rest, chest pain with exertion, excessive sweating, shortness of breath, dyspnea on exertion, lightheadedness, orthopnea or palpitations Gastro GI: No abdominal pain, change in bowel habits, constipation, cramping, diarrhea, nausea/dyspepsia or vomiting Genitourinary-Female: No burning urination, painful urination, urinary incontinence, urinary frequency, abnormal vaginal bleeding or pelvic pain Musc Musculoskeletal: No abnormal gait, joint pain, back pain, limited range of motion, neck pain, numbness or tingling Skin Skin: No dry skin, redness, lesions, itchy eyes, rash or wounds Neuro Neurology: No abnormal gait, abnormal hearing, russell (more content not included)... Normal [facility] Absolute lymphocyte countOrd ered By: Elsawmadela Moyamilexyeny on 08-28-2023 Lymphocytes Auto (Unsp spec) [#/Vol] 2.32 10*3/uL 0.83-4.51 [facility] Basophil percentageOrdered B y: Yesenia Chepeabrahan on 08-28-2023 Basophils/100 WBC (Bld) 0.6 % 0-1 [facility] Bilirubin [Mass/Vol] 0.30 mg/dL 0.20-1.[address] [facility] Comment on above: For patients on eltr ombopag therapy, use of Dimension [place] TBIL is not recommended. Chloride [Moles/Vol] 104 mmol/L 98-[address] [facility] Cholesterol [Mass/Vol] 243 mg/dL <200 [facility] Comment on above: <200 mg/dL Desirable 200-240 mg/dL Borderline >240 mg/dL High Risk Eosinophils/100 WBC (Bld) 3.5 % 0-5 [facility] Glucose [Mass/Vol] 92 mg/dL 74-106 [facility] Neutrophils (Bld) [#/Vol] 4.5 10*3/uL 2.0-7.7 [facility] Neutrophils/100 WBC (Bld) 57.2 % 47-70 [facility] Potassium [Moles/Vol] 3.9 mmol/L 3.5-5.1 [facility] Protein [Mass/Vol] 7.4 g/dL 6.4-8.2 [facility] Sodium [Moles/Vol] 138 mmol/L 136-145 [facility] Triglyceride [Mass/Vol] 175 mg/dL <199 [facility] Comment on above: The drugs N-Acetylcy steine and Metamizole may falsely depress this assay.Serum Triglycerides Reference Interval Normal <150 mg/dL Borderline high 150 - 199 mg/dL High 200 - 499 mg/dL Very High > or = 500 mg/dL WBC (Bld) [#/Vol] 7.8 10*3/uL 4.4-11.0 [facility] Blood erythrocytes count (nu mber/volume)Ordered By: Yesenia Manning on 08-28-2023 RBC (Bld) [#/Vol] 4.86 10*6/uL 4.2-5.4 [facility] Blood hemoglobin measurement (mass/volume)Ordered By: Yesenia Manning on 08-28-2023 Hemoglobin (Bld) [Mass/Vol] 14.2 g/dL 12.0-15.0 [facility] Blood lymphocytes/100 leukoc ytesOrdered By: Yesenia Manning on 08-28-2023 Lymphocytes/100 WBC (Bld) 29.7 % 19-41 [facility] Blood monocytes/100 leukocyt esOrdered By: Yesenia Manning on 08-28-2023 Monocytes/100 WBC (Bld) 8.6 % 0-10 [facility] Blood platelet mean volumeOr dered By: [facility] on 08-28-2023 Platelet mean volume (Bld) [Entitic vol] 10.4 fL 6.2-12.0 [facility] Determination of erythrocyte mean corpuscular volume (MCV)Ordered By: [facility] on 08-28-2023 MCV (RBC) [Entitic vol] 92.0 fL 81-99 [facility] Hematocrit Auto (Bld) [Volum e fraction]Ordered By: [facility] on 08-28-2023 Hematocrit (Bld) [Volume fraction] 44.7 % 37-47 [facility] - Chemistry and C hemistry - challengeOrdered By: [facility] on 08-28-2023 ALP [Catalytic activity/Vol] 74 U/L 45-117 [facility] ALT [Catalytic activity/Vol] 31 U/L 13-56 [facility] CO2 [Moles/Vol] 28.0 mmol/L 21.0-32.0 [facility] Free T4 [Mass/Vol] 0.99 ng/dL 0.76-1.46 [facility] Globulin (S) [Mass/Vol] 3.5 g/dL 2.2-4.2 [facility] Urea nitrogen/Creatinine [Mass ratio] 17.5 mg/mg 10-20 [facility] - Hematology and Cell countsOrdered By: [facility] on 08-28-2023 Erythrocyte distribution width (RBC) [Entitic vol] 44.7 fL 35.1-43.9 [facility] Erythrocyte distribution width (RBC) [Ratio] 13.2 % 11.6-14.6 [facility] Immature granulocytes/100 WBC (Bld) 0.400 % 0.0-0.9 [facility] Comment on above: IG% - Immature Granu locytes (promyelocytes, myelocytes and metamyelocytes) > 1% indicates that a LEFT SHIFT is Present. MCH (RBC) [Entitic mass] 29.2 pg 27.0-32.0 [facility] Nucleated RBC/100 WBC (Bld) [Ratio] 0 % 0-5 [facility] MCHC Auto (RBC) [Mass/Vol]Or dered By: Yesenia Manning on 08-28-2023 MCHC (RBC) [Mass/Vol] 31.8 g/dL 32-36 [facility] No Panel InformationOrdered By: Yesenia Manning on 08-28-2023 Estimated GFR (MDRD) Amer 75 mL/min >60 [facility] Comment on above: GFR Calc Estimated GFR (MDRD) Non-Af Amer 62 mL/min >60 [facility] Comment on above: Non- GFR Calc Vitamin D 25-Hydroxy 57.2 ng/mL [facility] Comment on above: Vitamin D 25(OH) Sta tus Range Deficiency <20 ng/mL (50nmol/L) Insufficiency 20 - 30 ng/mL (50 - 75 nmol/L) Sufficiency 30 - 100 ng/mL (75 - 250 nmol/L) Toxicity >100 ng/mL (>250 nmol/L) Platelets bldOrdered By: Stewart Manning on 08-28-2023 Platelets (Bld) [#/Vol] 259 10*3/uL 150-450 [facility] Serum or plasma albumin miguel urement (mass/volume)Ordered By: Yesenia Manning on 08-28-2023 Albumin [Mass/Vol] 3.9 g/dL 3.2-5.0 [facility] Serum or plasma albumin/glob ulin mass ratioOrdered By: Yesenia Manning on 08-28-2023 Albumin/Globulin [Mass ratio] 1.1 {ratio} 0.9-2.4 [facility] Serum or plasma calcium miguel urement (mass/volume)Ordered By: Yesenia Manning on 08-28-2023 Calcium [Mass/Vol] 9.0 mg/dL 8.5-10.1 [facility] Serum or plasma cholesterol in HDL measurement (mass/volume)Ordered By: Yesenia Manning on 08-28-2023 Cholesterol in HDL [Mass/Vol] 51 mg/dL >40 [facility] Comment on above: The drugs N-Acetylcy steine and Metamizole may falsely depress this assay. Reference Range HDL <40 mg/dL Low HDL Cholesterol HDL >or= 60 mg/dL High HDL Cholesterol Serum or plasma cholesterol in VLDL measurement (mass/volume)Ordered By: Yesenia Manning on 08-28-2023 Cholesterol in VLDL [Mass/Vol] 35 mg/dL 5-40 [facility] Serum or plasma creatinine m easurement (mass/volume)Ordered By: Yesenia Manning on 08-28-2023 Creatinine [Mass/Vol] 0.97 mg/dL 0.55-1.02 [facility] Comment on above: The validity of the calculated GFR & GFRAA in patients over 70 years has not been determined. Clinical correlation is essential. Serum or plasma low density lipoprotein (LDL) cholesterol measurement (mass/volume)Ordered By: Yesenia Manning on 08-28-2023 Cholesterol in LDL [Mass/Vol] 157 mg/dL 0-130 [facility] Serum or plasma urea nitroge n measurement (mass/volume)Ordered By: Yesenia Manning on 08-28-2023 Urea nitrogen [Mass/Vol] 17 mg/dL 7-18 [facility] Thin prep Papanicolaou smear with manual screeningOrdered By: Yesenia Manning on 08-28-2023 Thin prep Papanicolaou smear with manual screening 17 U/L 15-37 [facility] Thin prep Papanicolaou smear with manual screening 6 5-15 [facility] CNPNon 06-06-2021 [facility] Telephone ([facility]) LUCI MCNALLY ([id number]) 1965 F Date Time Provider Department 06/06/21 LAURA SNYDER [facility] During your visit today, we recorded the following information about you: Laura Snyder APRN.[facility] 06/06/2021 3:48 PM Signed Patient identified by name and date of . I advised patient of positive COVID test. The CDC recommends that people refrain from work and isolate themselves until the following criteria are met: 1. At least 24 hours have passed since last fever without the use of fever-reducing medications 2. Other symptoms have improved 3. At least 10 days have passed since symptoms first appeared - Follow-up with your PCP in 3-5 days if symptoms have not improved or sooner if symptoms worsen - Discussed red flags and need for immediate medical evaluation if any occur. - Discussed supportive care treatment with fluids, rest and analgesia. - Discussed expected course of illness Laura Snyder APRN.[facility] Allergies As of Date: 06/06/2021 Noted Allergy Reaction ERTHROMYCIN (ERYTHROMYCIN) 07/21/2014 8 - GI Upset Date Reviewed: 06/05/2021 Reviewed by: Loan Stewart APRN.[facility] - Fully Assessed Reason for Visit: Results [95] Prescriptions as of 06/06/2021 - Methenamine Hippurate (HIPREX) 1 gram tablet - MYRBETRIQ 50 mg Tb24 - promethazine (PHENERGAN) 12.5 mg tablet Take 1 tablet by mouth every 6 hours as needed for nausea/vomiting. - citalopram (CELEXA) 20 mg tablet Take 20 mg by mouth once daily. - buPROPion SR (WELLBUTRIN SR) 150 mg 12 hr tablet Take 150 mg by mouth twice daily. - TRAZODONE HCL (TRAZODONE ORAL) Take 50 mg by mouth as directed. - zolpidem (AMBIEN) 10 mg tab Take 5 mg by mouth at bedtime as needed. 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 Subjective Luci Mcnally is a 55 year old female. HPI by patient: Luci Mcnally is a 55 year old female presenting to the office with the complaint of viral symptoms. Started approximately 1 week prior. Associated symptoms include headaches- sharp/stabbing, diaphoresis, chills, unsure if she's had a fever- not recognized on thermometer, nausea, diarrhea, cough, fatigue, shortness of breath- attributes to being upset/panic, runny nose, and loss of smell/taste. Denies vomiting, sinus congestion, and sore throat. Vaccinated for Covid: no. Sick contacts: yes. Covid + contacts: yes. Travel in the last 14 days: none. Smoking history/second hand smoke: none. OTC tylenol. No antibiotic use in the last 30 days. ALLERGIES Erthromycin (Erythr* GI Upset Family History Reviewed Including Cardiac Diseases, Psychiatric Diseases, AND Substance Abuse Problem: Heart Relation: Maternal Grandmother Age of Onset: (Not Specified) Problem: other (parkinson (Other)) Relation: Maternal Grandfather Age of Onset: (Not Specified) Problem: Stroke Relation: Paternal Grandmother Age of Onset: (Not Specified) Problem: Colon Cancer Relation: Father Age of Onset: (Not Specified) Problem: Cancer Relation: Mother Age of Onset: (Not Specified) Social History Tobacco Use Smoking status: Never Smoker Smokeless tobacco: Never Used Alcohol use: Yes Alcohol/week: 2.5 standard drinks Types: 1 Glasses of Wine (5oz) per week Comment: once monthly Drug use: No Active Ambulatory Problems Vulvitis Date Noted: 06/10/2013 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 Negative for fever. HENT: Negative. Negative for sore throat. Eyes: Negative. Respiratory: Positive for cough and shortness of breath. Cardiovascular: Negative. Gastrointestinal: Positive for diarrhea and nausea. Negative for vomiting. Endocrine: Negative. Genitourinary: Negative. Musculoskeletal: Positive for myalgias. Skin: Negative. Neurological: Positive for headaches. Hematological: Negative. Objective BP 120/68 Pulse 102 Temp 37.5 ?C (99.5 ?F) Resp 18 Wt 63.5 kg (140 lb) LMP 05/17/2009 SpO2 99% BMI 22.94 kg/m? Physical Exam Constitutional: General: She is not in acute distress. Appearance: She is ill-appearing. She is not toxic-appearing or diaphoretic. HENT: Right Ear: Tympanic membrane, ear canal and external ear normal. Left Ear: Tympanic membrane, ear canal and external ear normal. Cardiovascular: Rate and Rhythm: Normal rate and regular rhythm. Pulmonary: Effort: Pulmonary effort is normal. Breath sounds: Normal breath sounds. Lymphadenopathy: Head: Right side of head: No submandibular or tonsillar adenopathy. Left side of head: No submandibular or tonsillar adenopathy. Cervical: No cervical adenopathy. Psychiatric: Behavior: Behavior is cooperative. Assessment and Plan (B34.9) Viral illness (primary encounter diagnosis) Plan: 2019 CORONAVIRUS (R11.2) Nausea and vomiting, intractability of vomiting not specified, unspecified vomiting type Plan: promethazine (PHENERGAN) 12.5 mg tablet Education on viral vs bacterial infections. Most viral infections will last 7-10 days, sometimes 14. It is possible to have back to back viral infections. An antibiotic will not treat a virus. -Covid test for rule out, results in 48 hours, isolation in the interim. Stop at the front office associate to set up [facility] if you are not already active as we are only calling with positive results right now. -zofran interacts with celexa, will rx phenergan for nausea/vomiting. -Drink lots of fluids and get plenty of rest. -Vaporizers, cool mist humidifiers, warm showers, and warm fluids help open respiratory and sinus passages. Clean humidifiers daily. -OTC tylenol as directed on the bottle. -Saline nasal spray as needed. Flonase twice daily can help reduce inflammation through the sinus cavities. -OTC Mucinex DM or generic version for cough/congestion for those over the age of 12. -Cough/deep breathing education, promote clearing of the airways and good lung expansion. -If no improvement in 3-5 days please be re-seen. -Signs that warrant an ER evaluation: Sudden change/worsening in condition, (more content not included)... Normal [facility] Coronavirus 2019on 1 SARS-CoV-2 (COVID-19) RNA ANETTE+probe Ql (Unsp spec) UPPER RESPIRATORY TRACT SWAB Normal [facility] Comment on above: Performed By: #### C OVID #### [place] [address] SARS-CoV-2 (COVID-19) RNA ANETTE+probe Ql (Unsp spec) Positive for COVID19 (SARS CoV2) by RT-PCR or equivalent method. Critically abnormal Negative for COVID19 (SARS CoV2) by RT-PCR or equivalent method. [facility] Comment on above: Result Comment: This test was developed and its performance characteristics determined by [facility] [place]. This test has been authorized by FDA under an Emergency Use Authorization (EUA). This test has been validated in accordance with the FDA's Guidance Document Policy for Diagnostics Testing in Laboratories Certified to Perform High Complexity Testing under CLIA prior to Emergency use Authorization for Coronavirus Disease 2019 during the Public Health Emergency issued on November 28, 2019. Test performed by [facility], [facility] [place], [address] [place] [id number]. Performed By: #### C OVID #### [place] [address] Vital Signs Date Time Vital Sign Value Performing Clinician sIrael brush 08-28-2023 15:16-0500 Body height 167.[address] Yesenia Manning Work Phone: [facility] 08-28-2023 15:16-0500 Body mass index (BMI) [Ratio] 24.2 kg/m2 Dr. Yesenia Manning Work Phone: [facility] 08-28-2023 15:16-0500 Body temperature 98.7 [degF] Dr. Yesenia Manning Work Phone: [facility] 08-28-2023 15:16-0500 Body weight 68.[address] Yesenia Manning Work Phone: [facility] 08-28-2023 15:16-0500 Diastolic blood pressure 60 mm[Hg] Dr. Yesenia Manning Work Phone: [facility] 08-28-2023 15:16-0500 Heart rate 65 /min Dr. Yesenia Manning Work Phone: [facility] 08-28-2023 15:16-0500 Respiratory rate 16 /min Dr. Yesenia Manning Work Phone: [facility] 08-28-2023 15:16-0500 SaO2% (BldA) [Mass fraction] 95 % Dr. Yesenia Manning Work Phone: [facility] 08-28-2023 15:16-0500 Systolic blood pressure 98 mm[Hg] Dr. Yesenia Manning Work Phone: [facility] Encounters Encounter Date Encounter Type Care Provider Facility Start: 08-03-2025 End: 08-03-2025 ambulatory Radha Adelso Facility:[facility] Start: 07-15-2025 End: 07-15-2025 ambulatory Radha Adelso Facility:[facility] Start: 05-11-2025 ambulatory Radha Adelso Facility:[facility] Start: 03-23-2025 ambulatory Radha Adelso Facility:[facility] Start: 01-25-2025 End: 01-25-2025 ambulatory Radha Adelso Facility:[facility] Start: 01-25-2025 Encounter for genera l adult medical examination without abnormal findings Yesenia Manning [facility] Start: 01-19-2025 End: 01-19-2025 ambulatory Yesenia Manning Facility:[facility] Start: 01-11-2025 End: 01-11-2025 ambulatory Yesenia Manning Facility:[facility] Start: 08-28-2023 End: 08-28-[address] Yesenia Manning Work Phone: [facility] Work Phone: Start: 08-28-2023 End: 08-28-[address] Yesenia Manning Work Phone: [facility] Work Phone: Start: 07-31-[address] Yesenia Manning Work Phone: [facility] Immunizations Immunization Date Immunization Notes Care Provider [facility] 07-14-[address] Yesenia Manning Work Phone: [facility] 06-24-[address] Yesenia Manning Work Phone: [facility] Payers Date Payer Category Payer Self-pay [id number] 2024 Unknown [id number] 2009 Unknown [facility] *DO NOT USE* [id number] Unknown ANTHEM [id number] Unknown [id number] 2.16.8 [id number] Unknown [id number] 2.16.8 [id number] Unknown [id number] 2.16.8 [id number] Unknown [id number] 2.16.8 [id number] Unknown [id number] 2.16.8 [id number] Unknown [id number] 2.16.8 [id number] Unknown [id number] 2.16.8 [id number] Unknown [id number] 2.16.8 [id number] Social History Date Type Detail Facility Start: 08-28-2023 Tobacco smoking status NHIS Unknown if ever smoked [facility] Start: 05-10-2020 None [facility] Start: 05-10-2020 Marijuana [facility] Start: 05-10-2020 Spouse/ Signif icant Other [facility] Start: 05-10-2020 Non-smoker [facility] Start: 1965 Sex Assigned At Female [facility] Progress note 06-05-2021 Note Date & Type Note Facility 06-05-2021 Note HNO ID: [id number] Author: Loan Stewart APRN.WAITER/WAITRESS INFORMAL Service: ? Author Type: Nurse Practitioner Type: Progress Notes Filed: 06/05/2021 11:58 AM Note Text: This note was created using NoteWriter. Subjective Luci Mcnally is a 55 year old female. HPI by patient: Luci Mcnally is a 55 year old female presenting to the office with the complaint of viral symptoms. Started approximately 1 week prior. Associated symptoms include headaches- sharp/stabbing, diaphoresis, chills, unsure if she's had a fever- not recognized on thermometer, nausea, diarrhea, cough, fatigue, shortness of breath- attributes to being upset/panic, runny nose, and loss of smell/taste. Denies vomiting, sinus congestion, and sore throat. Vaccinated for Covid: no. Sick contacts: yes. Covid + contacts: yes. Travel in the last 14 days: none. Smoking history/second hand smoke: none. OTC tylenol. No antibiotic use in the last 30 days. ALLERGIES Erthromycin (Erythr* GI Upset Family History Reviewed Including Cardiac Diseases, Psychiatric Diseases, AND Substance Abuse Problem: Heart Relation: Maternal Grandmother Age of Onset: (Not Specified) Problem: other (parkinson (Other)) Relation: Maternal Grandfather Age of Onset: (Not Specified) Problem: Stroke Relation: Paternal Grandmother Age of Onset: (Not Specified) Problem: Colon Cancer Relation: Father Age of Onset: (Not Specified) Problem: Cancer Relation: Mother Age of Onset: (Not Specified) Social History Tobacco Use Smoking status: Never Smoker Smokeless tobacco: Never Used Alcohol use: Yes Alcohol/week: 2.5 standard drinks Types: 1 Glasses of Wine (5oz) per week Comment: once monthly Drug use: No Active Ambulatory Problems Vulvitis Date Noted: 06/10/2013 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 Negative for fever. HENT: Negative. Negative for sore throat. Eyes: Negative. Respiratory: Positive for cough and shortness of breath. Cardiovascular: Negative. Gastrointestinal: Positive for diarrhea and nausea. Negative for vomiting. Endocrine: Negative. Genitourinary: Negative. Musculoskeletal: Positive for myalgias. Skin: Negative. Neurological: Positive for headaches. Hematological: Negative. Objective BP 120/68 Pulse 102 Temp 37.5 ?C (99.5 ?F) Resp 18 Wt 63.5 kg (140 lb) LMP 05/17/2009 SpO2 99% BMI 22.94 kg/m? Physical Exam Constitutional: General: She is not in acute distress. Appearance: She is ill-appearing. She is not toxic-appearing or diaphoretic. HENT: Right Ear: Tympanic membrane, ear canal and external ear normal. Left Ear: Tympanic membrane, ear canal and external ear normal. Cardiovascular: Rate and Rhythm: Normal rate and regular rhythm. Pulmonary: Effort: Pulmonary effort is normal. Breath sounds: Normal breath sounds. Lymphadenopathy: Head: Right side of head: No submandibular or tonsillar adenopathy. Left side of head: No submandibular or tonsillar adenopathy. Cervical: No cervical adenopathy. Psychiatric: Behavior: Behavior is cooperative. Assessment and Plan (B34.9) Viral illness (primary encounter diagnosis) Plan: 2019 CORONAVIRUS (R11.2) Nausea and vomiting, intractability of vomiting not specified, unspecified vomiting type Plan: promethazine (PHENERGAN) 12.5 mg tablet Education on viral vs bacterial infections. Most viral infections will last 7-10 days, sometimes 14. It is possible to have back to back viral infections. An antibiotic will not treat a virus. -Covid test for rule out, results in 48 hours, isolation in the interim. Stop at the front office associate to set up [facility] if you are not already active as we are only calling with positive results right now. -zofran interacts with celexa, will rx phenergan for nausea/vomiting. -Drink lots of fluids and get plenty of rest. -Vaporizers, cool mist humidifiers, warm showers, and warm fluids help open respiratory and sinus passages. Clean humidifiers daily. -OTC tylenol as directed on the bottle. -Saline nasal spray as needed. Flonase twice daily can help reduce inflammation through the sinus cavities. -OTC Mucinex DM or generic version for cough/congestion for those over the age of 12. -Cough/deep breathing education, promote clearing of the airways and good lung expansion. -If no improvement in 3-5 days please be re-seen. -Signs that warrant an ER evaluation: Sudden change/worsening in condition, lethargy, signs of dehydration, fever greater than 102 F that is not responding to Tylenol or ibuprofen (Motrin, Advil), drooling, difficulty swallowing, difficulty breathing, shortness of breath, chest pain, evidence of airway compromise (tripod position, neck extension, retractions), (more content not included)... [facility] Evaluation note Note Date & Type Note Facility Evaluation note Diagnosis Onset Date Anxiety and depression chron ic Hyperlipidemia chronic Osteopenia with high risk of fracture chronic Overactive bladder chronic [facility] Work Phone: Summary Purpose Family History No Family History Records Found Relationship Condition Age at Onset Recorded Date/T branden father Malignant neoplasm Unknown Malignant neoplasm of colon Unknown Advance Directives No Advanced Directives Records Found Advance Directive Response Recorded Date/ Time Living Will No May 10 0 9:17am Power of Surveillance Camera Technician No May 10 020 9:17am Chief Complaint and Reason for Visit Chief Complaint FOLLOW UP Reason for Visit Anxiety and depressi on Hyperlipidemia Osteopenia with high risk of fracture Overactive bladder Additional Source Comments INFORMATION SOURCE (unrecogn ized section and content) DATE CREATED AUTHOR 09/17/2021 [facility] DATE CREATED AUTHOR AUTHOR'S ASUNCIONEVE CORDELL 08/04/2025 [facility] Care Teams (unrecognized sec tion and content) Team Status: Active Member Role Status Dates Dr. Eh Larose MD Family Provider Active Dr. Yesenia Manning MD Primary Care Provider Active Team Status: Inactive Member Role Status Dates Dr. Yesenia Manning MD Primary Care P daniela, Attending Provider, Referring Provider Active Goals (unrecognized section and content) Goals may be documented in a n alternate section FOR RECORDS PERTAINING TO PATIENTS WHO ARE OR HAVE BEEN ENROLLED IN A CHEMICAL DEPENDENCY/SUBSTANCEABUSE PROGRAM, SOME INFORMATION MAY BE OMITTED. This clinical summary was aggregated from multiple sources. Caution should be exercised in using it in the provision of clinical care. This summary normalizes information from multiple sources, and as a consequence, information in this document may materially change the coding, format and clinical context of patient data. In addition, data may be omitted in some cases. CLINICAL DECISIONS SHOULD BE BASED ON THE PRIMARY CLINICAL RECORDS. [employer] provides no warranty or guarantee of the accuracy or completeness of information in this document.
--- NOTE | 2025-09-25 07:33 | MRI_ITS ---
PROCEDURE: LOWER EXT JOINT ONLY (ROUTINE) 09/25/2025 REASON FOR EXAM: PAIN. TECHNIQUE: Procedure Code: MRILEJ Modality: MR Procedure: MRI of the right hip and pelvis without contrast. Multiplanar and multisequence images were obtained without IV contrast administration. COMPARISON: COMPARISON : Right hip and pelvis study of . FINDINGS: At least mild degenerative changes of the visualized lumbar spine noted. Sacroiliac joints demonstrate no significant arthritic changes. The left hip joint demonstrates no more than minimal degenerative changes. Mild right hip joint degenerative changes are seen. A very small right hip joint effusion is seen. Mild signal changes in the head, neck, and intertrochanteric region of the right femur, likely reactive in nature; no fracture line is evident. The presence of the joint effusion may represent inflammatory response. No evidence of femoral head osteonecrosis. No acute osseous signal changes are otherwise seen. MRI/Lower Ext Joint Only (Routine) IMPRESSION: Asymmetric right hip joint degenerative changes, with associated small joint ef fusion and osseous signal changes as described. Appearance is nonspecific, but may represent combination of reactive change and possible inflammatory response. Mild lumbar spine degenerative changes. Reading Location: [place] [id number]
== END | disposition home or self-care (01) ==
LOC: MRI 07:17
PROVIDERS: PCP Internal Medicine; Referring Provider Orthopaedic Surgery; Visit Provider Orthopaedic Surgery
DX: M25.551 Pain in right hip (principal)
CPT/HCPCS: 73721